=== PATIENT | male | born 1975 | race Caucasian/White ===

== ENCOUNTER 2017-01-24 07:45 | Emergency (ER) | payer OTHER ==
[2017-01-24] MEDS ORDERED: Sodium Chloride 0.9% 1000 ML 1,000 ML IV STA (08:17)
[2017-01-24] MEDS ORDERED: Hydromorphone 1 mg/ml Ampule IV ONE (08:17)
[2017-01-24] MEDS ORDERED: TORAdol 30 mg Injection IV ONE (08:17)
[2017-01-24] MEDS ORDERED: Phenergan 25 MG INJ IV ONE (08:17)
[2017-01-24] MEDS ORDERED: TORAdol 30 mg Injection ONE (08:21)
[2017-01-24] MEDS ORDERED: Hydromorphone 1 mg/ml Ampule ONE (08:21)
[2017-01-24] MEDS ORDERED: Phenergan 25 MG INJ ONE (08:21)
[2017-01-24] MEDS ORDERED: Sodium Chloride 0.9% 1000 ML 1,000 ML ONE (08:21)
[2017-01-24 08:28] LABS: Mean Cell Volume 84.8 fl (78-100); Mean Corpuscular Hemoglobin 28.8 pg (26-32); Mean Platelet Volume 11.2 fl (6-9.5); Platelet Count 216 K/mm3 (150-450); Red Blood Count 5.38 M/mm3 (4.1-5.6); Red Cell Distribution Width 13.3 % (11.5-14.0); White Blood Count 6.7 K/mm3 (4.0-10.5)
--- NOTE | 2017-01-24 08:34 | ERPHSYRPT ---
- History of Present Illness Time Seen by Provider: 01/24/17 08:28 Historian: patient Exam Limitations: no limitations Patient Subjective Stated Complaint: pt states at 0000 he began having right lower quad abdominal pain with right flank pain. states pain became worse at 0300 this morning. denies any diarrhea or vomiting. Triage Nursing Assessment: pt pale, warm, dry. abdomen soft tender to touch in right lower qaud. pt afebrile. Physician History: The patient is a 41-year-old male with his complaining of a sudden onset of right sided abdominal pain that began about 8 hours ago. It has been worsening. The pain now goes through to his back. The pain is more localized in his right lower quadrant. He is now vomiting. He has a negative past medical surgical history. He takes no prescription medicines. He has no history of kidney stones. He has an occasional alcoholic drink. Timing/Duration: hour(s) (8) Activities at Onset: none Quality: stabbing Abdominal Pain Onset Location: RLQ, flank Pain Radiation: back Severity of Pain-Max: severe Severity of Pain-Current: severe Modifying Factors: Improves With: nothing Associated Symptoms: nausea, vomiting Previous symptoms: no prior history Allergies/Adverse Reactions: No Known Drug Allergies Allergy (Unverified 01/24/17 08:01) Home Medications: No Reportable Medications [No Reported Medications] 01/24/17 [History] Hx Tetanus, Diphtheria Vaccination/Date Given: Yes ([place]) Hx Influenza Vaccination/Date Given: No Hx Pneumococcal Vaccination/Date Given: No Immunizations Up to Date: Yes - Review of Systems Constitutional: No Fever, No Chills Eyes: No Symptoms Ears, Nose, & Throat: No Symptoms Respiratory: No Cough, No Dyspnea Cardiac: No Chest Pain, No Edema, No Syncope Abdominal/Gastrointestinal: Abdominal Pain, Nausea, Vomiting, No Diarrhea Genitourinary Symptoms: No Dysuria Musculoskeletal: No Back Pain, No Neck Pain Skin: No Rash Neurological: No Dizziness, No Focal Weakness, No Sensory Changes Psychological: No Symptoms Endocrine: No Symptoms Hematologic/Lymphatic: No Symptoms Immunological/Allergic: No Symptoms All Other Systems: Reviewed and Negative - Past Medical History Pertinent Past Medical History: No - Past Surgical History Past Surgical History: No - Social History Smoking Status: Never smoker Exposure to second hand smoke: No Drug Use: none Patient Lives Alone: No - Nursing Vital Signs Nursing Vital Signs: Initial Vital Signs Temperature 97.8 F Temperature Source Oral Pulse Rate 83 Respiratory Rate 20 Blood Pressure [Right Arm] 139/95 Pain Intensity 7 - Physical Exam General Appearance: severe distress Eye Exam: PERRL/EOMI, eyes nml inspection Ears, Nose, Throat Exam: normal ENT inspection, pharynx normal, moist mucous membranes Neck Exam: normal inspection, non-tender, supple, full range of motion Respiratory Exam: normal breath sounds, lungs clear, No respiratory distress Cardiovascular Exam: regular rate/rhythm, normal heart sounds Gastrointestinal/Abdomen Exam: tenderness (RLQ) Rectal Exam: not done Back Exam: CVA tenderness (right) Extremity Exam: normal inspection, normal range of motion, pelvis stable Neurologic Exam: alert, oriented x 3, cooperative, normal mood/affect, nml cerebellar function, sensation nml, No motor deficits Skin Exam: normal color, warm, dry SpO2 Interpretation: normal SpO2: 98 Oxygen Delivery: Room Air - CT Exams Abdomen/Pelvis CT Interpretation: Tele-radiologist Report, Normal Appendix, Other (1 mm recently passed kidney stone in bladder, possible tiny gall stone) Ordered Tests: Active Orders 24 hr Category Date Time Status IV Insertion STAT Care 01/24/17 08:15 Active ABDOMEN AND PELVIS W/0 CONTRAS [CT] Stat Exams 01/24/17 09:15 Taken CBC W DIFF Stat Lab 01/24/17 05:15 Completed CMP Stat Lab 01/24/17 05:15 Completed LIPASE Stat Lab 01/24/17 05:15 Completed Manual Differential NC Stat Lab 01/24/17 05:15 Completed UA W/ MICROSCOPIC Stat Lab 01/24/17 05:15 Completed Medication Summary Discontinued Medications Generic Name Dose Route Start Last Admin Trade Name Freq PRN Reason Stop Dose Admin Hydromorphone HCl 2 mg 01/24/17 08:17 01/24/17 08:24 Hydromorphone 1 Mg/Ml Ampule IV 01/24/17 08:18 2 mg STAT ONE Administration Hydromorphone HCl Confirm 01/24/17 08:21 Hydromorphone 1 Mg/Ml Ampule Administered 01/24/17 08:22 Dose 2 mg .ROUTE .STK-MED ONE Sodium Chloride 1,000 mls @ 999 mls/hr 01/24/17 08:17 01/24/17 08:24 Sodium Chloride 0.9% 1000 Ml IV 01/24/17 09:17 999 mls/hr .Q1H1M STA Administration Sodium Chloride Confirm 01/24/17 08:21 Sodium Chloride 0.9% 1000 Ml Administered 01/24/17 08:22 Dose 1,000 mls @ ud .ROUTE .STK-MED ONE Ketorolac Tromethamine 30 mg 01/24/17 08:17 01/24/17 08:24 Toradol 30 Mg Injection IV 01/24/17 08:18 30 mg STAT ONE Administration Ketorolac Tromethamine Confirm 01/24/17 08:21 Toradol 30 Mg Injection Administered 01/24/17 08:22 Dose 30 mg .ROUTE .STK-MED ONE Promethazine HCl 25 mg 01/24/17 08:17 01/24/17 08:24 Phenergan 25 Mg Inj IV 01/24/17 08:18 25 mg STAT ONE Administration Promethazine HCl Confirm 01/24/17 08:21 Phenergan 25 Mg Inj Administered 01/24/17 08:22 Dose 25 mg .ROUTE .STK-MED ONE Tamsulosin HCl 0.4 mg 01/24/17 09:14 01/24/17 09:21 Flomax 0.4 Mg PO 01/24/17 09:15 0.4 mg HS STA Administration Tamsulosin HCl Confirm 01/24/17 09:20 Flomax 0.4 Mg Administered 01/24/17 09:21 Dose 0.4 mg .ROUTE .STK-MED ONE Lab/Rad Data: Laboratory Result Diagrams 01/24/17 05:15 01/24/17 05:15 Laboratory Results 01/24/17 01/24/17 01/24/17 Range/Units 05:15 05:15 05:15 WBC 6.7 (4.0-10.5) K/mm3 RBC 5.38 (4.1-5.6) M/mm3 Hgb 15.5 (12.5-18.0) gm/dl Hct 45.6 (42-50) % MCV 84.8 (78-100) fl MCH 28.8 (26-32) pg MCHC 34.0 (32-36) g/dl RDW 13.3 (11.5-14.0) % Plt Count 216 (150-450) K/mm3 MPV 11.2 H (6-9.5) fl Segmented Neutrophils 50 (36.-66.) % Lymphocytes (Manual) 40 (24-44) % Monocytes (Manual) 9 (0.0-12.0) % Eosinophils (Manual) 1 (0.00-3.0) % Differential Comment NORMAL Platelet Estimate NORMAL (NORMAL) Sodium 141 (136-145) mEq/L Potassium 3.8 (3.5-5.1) mEq/L Chloride 105 (98-107) mEq/L Carbon Dioxide 22.8 (21-32) mEq/L Anion Gap 16.5 H (5-15) MEQ/L BUN 10 (9-20) mg/dL Creatinine 1.37 H (0.55-1.30) mg/dl Estimated GFR > 60 ML/MIN Glucose 133 H (70-110) MG/DL Calcium 9.2 (8.5-10.1) mg/dL Total Bilirubin 1.3 H (0.2-1.0) mg/dL AST 39 H (15-37) U/L ALT 87 H (12-78) U/L Alkaline Phosphatase 77 (46-116) U/L Serum Total Protein 8.5 H (6.4-8.2) gm/dL Albumin 3.8 (3.4-5.0) g/dL Lipase 205 (73-393) U/L Ur Collection Type VOID Urine Color YELLOW (YELLOW) Urine Appearance HAZY (CLEAR) Urine pH 5.5 (5-6) Ur Specific [place] >=1.030 (1.005-1.025) Urine Protein 30 (Negative) Urine Glucose (UA) NEGATIVE (NEGATIVE) mg/dL Urine Ketones NEGATIVE (NEGATIVE) Urine Nitrite NEGATIVE (NEGATIVE) Urine Bilirubin NEGATIVE (NEGATIVE) Urine Urobilinogen 0.2 (0-1) mg/dL Urine WBC (Auto) NEGATIVE (NEGATIVE) Urine RBC (Auto) LARGE (0-5) Jitendra/ul Urine Microscopic RBC >100 (0-2) /HPF Urine Microscopic WBC 0-2 (0-5) /HPF Ur Epithelial Cells RARE (FEW) /HPF Urine Bacteria FEW (NEGATIVE) /HPF Hyaline Casts 5-10 (0-2) /LPF Urine Mucus MODERATE (NEGATIVE) /HPF Specimen Received 01/24/17 0815 - Progress Progress: improved Progress Note: 01/24/17 10:26 Pt feeling no pain at 10:25. Counseled pt/family regarding: lab results, diagnosis, need for follow-up, rad results - Departure Time of Disposition: 10:27 Departure Disposition: Home Clinical Impression: Ureterolithiasis Condition: Stable Critical Care Time: No Additional Instructions: You have passed as small 1 mm kidney stone. Continue to stay well hydrated. Follow up on Thursday with Dr Kruger to evaluate the possible tiny gallstone that was seen on abd CT scan.
[2017-01-24 08:37] VITALS: O2SAT 98
[2017-01-24 08:54] LABS: ALBUMIN 3.8 g/dL (3.4-5.0); ALKALINE PHOSPHATASE 77 U/L (46-116); ANION GAP 16.5 MEQ/L (5-15); BILIRUBIN,TOTAL 1.3 mg/dL (0.2-1.0); BLOOD UREA NITROGEN 10 mg/dL (9-20); CHLORIDE 105 mEq/L (98-107); Carbon Dioxide 22.8 mEq/L (21-32); Glucose 133 MG/DL (70-110); LIPASE 205 U/L (73-393); Potassium 3.8 mEq/L (3.5-5.1); SGOT/AST 39 U/L (15-37); SGPT/ALT 87 U/L (12-78); SODIUM 141 mEq/L (136-145); Total Protein 8.5 gm/dL (6.4-8.2)
[2017-01-24 08:58] LABS: Collection Type VOID
[2017-01-24 08:59] LABS: COMPLETE URINE MICROSCOPIC? YES; Ph 5.5 (5-6)
[2017-01-24 09:05] LABS: Bacteria FEW /HPF (NEGATIVE); Epithelial Cells RARE /HPF (FEW); Mucus MODERATE /HPF (NEGATIVE); WBC 0-2 /HPF (0-5)
[2017-01-24 09:08] LABS: Eosinophil 1 % (0.00-3.0); Platelet Estimate NORMAL (NORMAL); Total Cells Counted 100
[2017-01-24] MEDS ORDERED: Flomax 0.4 MG PO STA (09:14)
[2017-01-24] MEDS ORDERED: Flomax 0.4 MG ONE (09:20)
[2017-01-24 10:27] VITALS: PULSE 76
[2017-01-24 11:02] VITALS: BP 93/66
--- NOTE | 2017-01-26 08:52 | XRAY ---
Indication: Right flank pain. Multiple contiguous axial images obtained through the abdomen and pelvis without contrast as ordered. Comparison: None Lung bases demonstrates bibasilar dependent atelectasis and left base calcified granuloma. Heart is not enlarged. Small hiatal hernia. There is a 2-3 mm calculus in the right posterior urinary bladder. Right ureter is minimally prominent with minimal right-sided hydronephrosis consistent with recent passage of said calculus. Solitary nonobstructing left renal punctate calculus. Mild fatty liver. Tiny punctate gallbladder neck stone. Noncontrasted stomach and bowel loops appear nonobstructed. Normal air-filled appendix. Sightly enlarged prostate gland with benign appearing calcifications. Remaining liver, gallbladder, pancreas, spleen, adrenal glands, kidneys, ureters, bladder, and aorta appear unremarkable for noncontrast exam. Osseous structures intact. Impression: 1. Urinary bladder micro-calculus presumed from recent right passage. Additional nonobstructing left renal micro-calculus. 2. Incidental fatty liver, tiny gallstone, enlarged prostate gland, and small hiatal hernia. Comment: Preliminary interpretation was made by [facility]. No discrepancy. CT DI 11.41
== END 2017-01-24 11:00 | disposition home or self-care (01) ==
LOC: ED 07:45
DX: N20.1 Calculus of ureter (principal); R10.31 Right lower quadrant pain; R11.2 Nausea with vomiting, unspecified
CPT/HCPCS: 36000; 36415; 74176; 80053; 81000; 83690; 85025; 96360; 96374; 96375; 99283; 99285; J1170; J1885; J2550

== ENCOUNTER 2022-05-11 21:09 | Observation (INO) | payer BC ==
[2022-05-11] MEDS ORDERED: Sodium Chloride 0.9% 1000 ML 1,000 ML IV STA ×2 (21:29→23:16)
[2022-05-11] MEDS ORDERED: Zofran 4 MG/2 ML VIAL IV ONE (21:29)
[2022-05-11] MEDS ORDERED: TYLENOL 325 MG PO ONE (21:29)
[2022-05-11] MEDS ORDERED: MORPHINE SULFATE 2 MG INJ IV ONE (21:29)
[2022-05-11] MEDS ORDERED: Zofran 4 MG/2 ML VIAL ONE (21:43)
[2022-05-11] MEDS ORDERED: MORPHINE SULFATE 2 MG INJ ONE (21:43)
--- NOTE | 2022-05-11 21:43 | ERPHSYRPT ---
- History of Present Illness Time Seen by Provider: 05/11/22 21:11 Source: patient Exam Limitations: no limitations Patient Subjective Stated Complaint: pt states he was positive for covid and flu b two weeks ago, now ffels that he has flu like symptoms again that began last night, pt states he had a fever of 102.0. Triage Nursing Assessment: pt has no pain at this time, but has chills and fever, productive cough, no trouble with SOB. Physician History: 46 years old male presented in the ER with flulike symptoms for the last 2 weeks. Patient report he tested positive for influenza and COVID almost 10 days ago, was given Tamiflu and antibiotic, was feeling better until yesterday and his symptoms seems to be coming back with increased cough productive of clear sputum with generalized weakness fatigue tiredness. Reports nausea without vomiting. Timing/Duration: week(s) (2), gradual onset, worse Fever Severity: moderate Fever Therapy [employer] MEMBER: prescription medications Associated Symptoms: cough, headache, muscle aches, nausea/vomiting, sore throat, weakness, No shortness of breath, No syncope Allergies/Adverse Reactions: No Known Drug Allergies Allergy (Verified 05/11/22 21:29) Home Medications: No Reportable Medications [No Reported Medications] 01/24/17 [History] Hx Tetanus, Diphtheria Vaccination/Date Given: No Hx Influenza Vaccination/Date Given: No Hx Pneumococcal Vaccination/Date Given: No Immunizations Up to Date: No Travel Risk - International Travel Have you traveled outside of the country in past 3 weeks: No - Coronavirus Screening Are you exhibiting any of the following symptoms?: No Close contact with a COVID-19 positive Pt in past 14-21 Days: No - Vaccine Status Have you recieved a Covid-19 vaccination: Yes Senior Security Analyst: [employer] - Vaccination Dates Date of 2cond Vaccination (if applicable): unknown - Review of Systems Constitutional: Fever, Chills, Fatigue, Weakness Eyes: No Symptoms Ears, Nose, & Throat: Throat Pain, Throat Swelling Respiratory: Cough Cardiac: No Symptoms Abdominal/Gastrointestinal: Nausea Genitourinary Symptoms: No Symptoms Musculoskeletal: Myalgias Skin: No Symptoms Neurological: Headache Psychological: No Symptoms Endocrine: No Symptoms Hematologic/Lymphatic: No Symptoms Immunological/Allergic: No Symptoms - Past Medical History Pertinent Past Medical History: No - Past Surgical History Past Surgical History: No - Social History Smoking Status: Never smoker Exposure to second hand smoke: No Drug Use: none Patient Lives Alone: No - Nursing Vital Signs Nursing Vital Signs: Initial Vital Signs Temperature 100.2 F 05/11/22 21:18 Pulse Rate 100 H 05/11/22 21:18 Respiratory Rate 18 05/11/22 21:18 Blood Pressure 107/67 05/11/22 21:18 O2 Sat by Pulse Oximetry 96 05/11/22 21:18 Pain Scale Pain Intensity 2 - Physical Exam General Appearance: no apparent distress, alert Eye Exam: PERRL/EOMI, eyes nml inspection ENT Exam: pharyngeal erythema Neck Exam: normal inspection, supple, full range of motion Respiratory Exam: normal breath sounds, lungs clear Cardiovascular/Chest Exam: normal heart sounds, regular rate/rhythm Gastrointestinal/Abdominal Exam: soft, non tender, No no distention Extremity Exam: non-tender, normal range of motion, normal inspection Neurologic Exam: alert, oriented x 3, cooperative, engine designer II-XII nml as tested Skin Exam: normal color SpO2 Interpretation: normal SpO2: 96 O2 Delivery: Room Air Ordered Tests: Active Orders 24 hr Category Date Time Status Bedrest ROUTINE Activity 05/12/22 00:46 Active Up With Assistance ROUTINE Activity 05/12/22 00:46 Active Code Status Order ROUTINE Care 05/12/22 00:46 Active Fall Protocol Q1H Care 05/12/22 00:46 Active IV Care Q6H Care 05/12/22 00:46 Active IV Insertion STAT Care 05/11/22 21:[address] in Observation ROUTINE Care 05/12/22 00:46 Active Sidra Sanchez ROUTINE Care 05/12/22 00:46 Active CHEST 1 VIEW (PORTABLE) Stat Exams 05/11/22 21:29 Taken BLOOD CULTURE Stat Lab 05/11/22 21:29 Stop Req CBC W DIFF AM.LAB Lab 05/12/22 04:22 Results CBC W DIFF Stat Lab 05/11/22 21:45 Completed CMP AM.LAB Lab 05/12/22 04:22 Completed CMP Stat Lab 05/11/22 21:45 Completed Lactic Acid Stat Lab 05/11/22 22:00 Completed MAGNESIUM Stat Lab 05/11/22 21:45 Completed PROCALCITONIN Stat Lab 05/11/22 21:47 Completed TROPONIN Q3H Lab 05/11/22 21:45 Completed UA W/RFX CULTURE Stat Lab 05/11/22 23:43 Completed Medication Summary Generic Name Dose Route Start Last Admin Trade Name Sharee PRN Reason Stop Dose Admin Acetaminophen 650 mg 05/12/22 00:46 Acetaminophen 325 Mg Tablet PO 06/11/22 00:45 Q4H PRN PRN PAIN AND/OR FEVER Albuterol Sulfate 2.5 mg 05/12/22 02:13 Albuterol Sulfate 2.5 Mg/3 Ml Neb IH 06/11/22 02:12 Q4H PRN PRN SHORTNESS OF BREATH/WHEEZING Methylprednisolone Sodium 0 mg 05/12/22 00:46 05/12/22 05:50 Succinate 60 mg/ Sterile Water IV 06/11/22 00:45 60 mg 2 ml Q6HT JESSI Administration Potassium Chloride/Sodium Chloride 1,000 mls @ 100 mls/hr 05/12/22 00:46 05/12/22 00:56 Sodium Chloride 0.9% W/ 20 Meq Kcl/Liter IV 06/11/22 00:45 100 mls/hr .Q10H JESSI Administration Azithromycin 500 mg in 250 mls @ 250 mls/hr 05/12/22 10:00 Zithromax 500 Mg/ 250 Ml Nacl Premix IV 06/11/22 09:59 Q24H10 JESSI Ceftriaxone Sodium/Dextrose 2 g in 50 mls @ 100 mls/hr 05/12/22 10:00 Rocephin 2 Gm-D5w 50ml Bag IV 05/15/22 09:59 Q24H10 JESSI Morphine Sulfate 2 mg 05/12/22 00:46 Morphine Sulfate 2 Mg/Ml Inj IV 05/17/22 00:45 Q4H PRN PRN PAIN Ondansetron HCl 4 mg 05/12/22 00:46 Ondansetron Hcl 4 Mg/2 Ml Vial IV 06/11/22 00:45 Q6H PRN PRN NAUSEA/VOMITING Pantoprazole Sodium 40 mg 05/12/22 10:00 Pantoprazole 40 Mg Vial IV 06/11/22 09:59 Q24H10 JESSI Discontinued Medications Generic Name Dose Route Start Last Admin Trade Name Sharee PRN Reason Stop Dose Admin Acetaminophen 975 mg 05/11/22 21:29 05/11/22 21:48 Acetaminophen 325 Mg Tablet PO 05/11/22 21:30 975 mg STAT ONE Administration Acetaminophen Confirm 05/11/22 21:44 Acetaminophen 325 Mg Tablet Administered 05/11/22 21:45 Dose 975 mg .ROUTE .STK-MED ONE Albuterol/Ipratropium 3 ml 05/12/22 01:00 Ipratropium/Albuterol Sulfate 3 Ml Ampul.Neb IH 06/11/22 00:59 Q6HRT JESSI Albuterol/Ipratropium Confirm 05/12/22 01:05 Ipratropium/Albuterol Sulfate 3 Ml Ampul.Neb Administered 05/12/22 01:06 Dose 3 ml IH .STK-MED ONE Methylprednisolone Sodium 0 mg 05/11/22 22:46 05/11/22 23:25 Succinate 125 mg/ Sterile IV 05/11/22 22:47 125 mg Water 2 ml STAT ONE Administration Sodium Chloride 1,000 mls @ 999 mls/hr 05/11/22 21:29 05/11/22 22:55 Sodium Chloride 0.9% 1000 Ml IV 05/11/22 22:29 Infused .Q1H1M STA Infusion Sodium Chloride Confirm 05/11/22 21:44 Sodium Chloride 0.9% 1000 Ml Administered 05/11/22 21:45 Dose 1,000 mls @ ud .ROUTE .STK-MED ONE Ceftriaxone Sodium/Dextrose 2 g in 50 mls @ 100 mls/hr 05/11/22 22:43 05/11/22 22:48 Rocephin 2 Gm-D5w 50ml Bag IV 05/11/22 23:12 100 ml/hr STAT STA 100 mls/hr Administration Azithromycin 500 mg in 250 mls @ 250 mls/hr 05/11/22 22:43 05/11/22 23:25 Zithromax 500 Mg/ 250 Ml Nacl Premix IV 05/11/22 23:42 250 ml/hr STAT STA 250 mls/hr Administration Ceftriaxone Sodium/Dextrose Confirm 05/11/22 22:47 Rocephin 2 Gm-D5w 50ml Bag Administered 05/11/22 22:48 Dose 2 g in 50 mls @ ud IV .STK-MED ONE Sodium Chloride 1,000 mls @ 999 mls/hr 05/11/22 23:16 05/11/22 23:18 Sodium Chloride 0.9% 1000 Ml IV 05/12/22 00:16 999 mls/hr .Q1H1M STA Administration Sodium Chloride Confirm 05/11/22 23:18 Sodium Chloride 0.9% 1000 Ml Administered 05/11/22 23:19 Dose 1,000 mls @ ud .ROUTE .STK-MED ONE Azithromycin Confirm 05/11/22 23:23 Zithromax 500 Mg/ 250 Ml Nacl Premix Administered 05/11/22 23:24 Dose 500 mg in 250 mls @ ud IV .STK-MED ONE Methylprednisolone Sodium Succinate Confirm 05/11/22 23:23 Methylprednis Sod Succ 125 Mg/2 Ml Vial Administered 05/11/22 23:24 Dose 125 mg .ROUTE .STK-MED ONE Methylprednisolone Sodium Succinate Confirm 05/12/22 05:12 Methylprednis Sod Succ 125 Mg/2 Ml Vial Administered 05/12/22 05:13 Dose 125 mg .ROUTE .STK-MED ONE Morphine Sulfate 2 mg 05/11/22 21:29 05/11/22 21:46 Morphine Sulfate 2 Mg/Ml Inj IV 05/11/22 21:30 2 mg STAT ONE Administration Morphine Sulfate Confirm 05/11/22 21:43 Morphine Sulfate 2 Mg/Ml Inj Administered 05/11/22 21:44 Dose 2 mg .ROUTE .STK-MED ONE Ondansetron HCl 4 mg 05/11/22 21:29 05/11/22 21:46 Ondansetron Hcl 4 Mg/2 Ml Vial IV 05/11/22 21:30 4 mg STAT ONE Administration Ondansetron HCl Confirm 05/11/22 21:43 Ondansetron Hcl 4 Mg/2 Ml Vial Administered 05/11/22 21:44 Dose 4 mg .ROUTE .STK-MED ONE Sterile Water Confirm 05/11/22 23:23 Water For Injection,Sterile 10 Ml Vial Administered 05/11/22 23:24 Dose 10 ml IJ .STK-MED ONE Sterile Water Confirm 05/12/22 05:12 Water For Injection,Sterile 10 Ml Vial Administered 05/12/22 05:13 Dose 10 ml IJ .STK-MED ONE Lab/Rad Data: Laboratory Result Diagrams 05/11/22 21:45 05/11/22 21:45 Laboratory Results 05/11/22 05/11/22 05/11/22 Range/Units 23:43 23:01 22:00 WBC (4.0-10.5) x10^3/uL RBC (4.1-5.6) x10^6/uL Hgb (12.5-18.0) g/dL Hct (42-50) % MCV (78-100) fL MCH (26-32) pg MCHC (32-36) g/dL RDW (11.5-14.0) % Plt Count (150-450) x10^3/uL MPV (7.5-11.0) fL Gran % (36.0-66.0) % Immature Gran % (Auto) (0.00-0.4) % Nucleat RBC Rel Count (0.00-0.1) % Eos # (Auto) (0-0.5) x10^3/uL Immature Gran # (Auto) (0.00-0.03) x10^3u/L Absolute Lymphs (auto) (1.0-4.6) x10^3/uL Absolute Monos (auto) (0.0-1.3) x10^3/uL Absolute Nucleated RBC (0.00-0.01) x10^3u/L Lymphocytes % (24.0-44.0) % Monocytes % (0.0-12.0) % Eosinophils % (0.00-5.0) % Basophils % (0.0-0.4) % Absolute Granulocytes (1.4-6.9) x10^3/uL Basophils # (0-0.4) x10^3/uL Sodium (137-145) mmol/L Potassium (3.5-5.1) mmol/L Chloride (98-107) mmol/L Carbon Dioxide (22-30) mmol/L Anion Gap (5-15) MEQ/L BUN (9-20) mg/dL Creatinine (0.66-1.25) mg/dL Estimated GFR ML/MIN Glucose (74-106) mg/dL Lactic Acid 1.1 (0.4-2.0) Calcium (8.4-10.2) mg/dL Magnesium (1.6-2.3) mg/dL Total Bilirubin (0.2-1.3) mg/dL AST (17-59) U/L ALT (0-50) U/L Alkaline Phosphatase (38-126) U/L Troponin I (0.000-0.034) ng/mL Serum Total Protein (6.3-8.2) g/dL Albumin (3.5-5.0) g/dL Procalcitonin (0.030-0.080) ng/mL Urinalys Dipstick Clnc MAIN LAB Urine Color DARK YELLOW (YELLOW) Urine Appearance CLEAR (CLEAR) Urine pH 6.0 (5-6) Ur Specific [place] 1.025 (1.005-1.025) POC Urine Protein Conf 30 (Negative) Urine Ketones NEGATIVE (NEGATIVE) Urine Nitrite NEGATIVE (NEGATIVE) Urine Bilirubin NEGATIVE (NEGATIVE) Urine Urobilinogen 0.2 (0-1) mg/dL Urine Leukocytes NEGATIVE (NEGATIVE) Urine WBC (Auto) 3-5 (0-5) /HPF Urine RBC (Auto) 0-2 (0-2) /HPF U Epithel Cells (Auto) NONE (FEW) /HPF Urine Bacteria (Auto) NONE SEEN (NEGATIVE) /HPF Urine RBC NEGATIVE (0-5) Jitendra/ul Urine Mucus (Auto) SLIGHT (NEGATIVE) /HPF Ur Culture Indicated? NO Urine Glucose NEGATIVE (NEGATIVE) mg/dL Influenza Type A Ag NEGATIVE (NEGATIVE) Influenza Type B Ag NEGATIVE (NEGATIVE) RSV (PCR) NEGATIVE (Negative) SARS-CoV-2 (PCR) NEGATIVE (NEGATIVE) 05/11/22 05/11/22 05/11/22 Range/Units 21:47 21:45 21:45 WBC (4.0-10.5) x10^3/uL RBC (4.1-5.6) x10^6/uL Hgb (12.5-18.0) g/dL Hct (42-50) % MCV (78-100) fL MCH (26-32) pg MCHC (32-36) g/dL RDW (11.5-14.0) % Plt Count (150-450) x10^3/uL MPV (7.5-11.0) fL Gran % (36.0-66.0) % Immature Gran % (Auto) (0.00-0.4) % Nucleat RBC Rel Count (0.00-0.1) % Eos # (Auto) (0-0.5) x10^3/uL Immature Gran # (Auto) (0.00-0.03) x10^3u/L Absolute Lymphs (auto) (1.0-4.6) x10^3/uL Absolute Monos (auto) (0.0-1.3) x10^3/uL Absolute Nucleated RBC (0.00-0.01) x10^3u/L Lymphocytes % (24.0-44.0) % Monocytes % (0.0-12.0) % Eosinophils % (0.00-5.0) % Basophils % (0.0-0.4) % Absolute Granulocytes (1.4-6.9) x10^3/uL Basophils # (0-0.4) x10^3/uL Sodium 140 (137-145) mmol/L Potassium 3.8 (3.5-5.1) mmol/L Chloride 105 (98-107) mmol/L Carbon Dioxide 26 (22-30) mmol/L Anion Gap 13.4 (5-15) MEQ/L BUN 13 (9-20) mg/dL Creatinine 1.17 (0.66-1.25) mg/dL Estimated GFR > 60.0 ML/MIN Glucose 115 H (74-106) mg/dL Lactic Acid (0.4-2.0) Calcium 9.4 (8.4-10.2) mg/dL Magnesium 1.6 (1.6-2.3) mg/dL Total Bilirubin 0.90 (0.2-1.3) mg/dL AST 56 (17-59) U/L ALT 91 H (0-50) U/L Alkaline Phosphatase 84 (38-126) U/L Troponin I < 0.012 (0.000-0.034) ng/mL Serum Total Protein 8.6 H (6.3-8.2) g/dL Albumin 4.5 (3.5-5.0) g/dL Procalcitonin 0.306 H (0.030-0.080) ng/mL Urinalys Dipstick Clnc Urine Color (YELLOW) Urine Appearance (CLEAR) Urine pH (5-6) Ur Specific [place] (1.005-1.025) POC Urine Protein Conf (Negative) Urine Ketones (NEGATIVE) Urine Nitrite (NEGATIVE) Urine Bilirubin (NEGATIVE) Urine Urobilinogen (0-1) mg/dL Urine Leukocytes (NEGATIVE) Urine WBC (Auto) (0-5) /HPF Urine RBC (Auto) (0-2) /HPF U Epithel Cells (Auto) (FEW) /HPF Urine Bacteria (Auto) (NEGATIVE) /HPF Urine RBC (0-5) Jitendra/ul Urine Mucus (Auto) (NEGATIVE) /HPF Ur Culture Indicated? Urine Glucose (NEGATIVE) mg/dL Influenza Type A Ag (NEGATIVE) Influenza Type B Ag (NEGATIVE) RSV (PCR) (Negative) SARS-CoV-2 (PCR) (NEGATIVE) 05/11/22 Range/Units 21:45 WBC 18.8 H (4.0-10.5) x10^3/uL RBC 5.43 (4.1-5.6) x10^6/uL Hgb 15.7 (12.5-18.0) g/dL Hct 48.7 (42-50) % MCV 89.7 (78-100) fL MCH 28.9 (26-32) pg MCHC 32.2 (32-36) g/dL RDW 12.8 (11.5-14.0) % Plt Count 259 (150-450) x10^3/uL MPV 10.3 (7.5-11.0) fL Gran % 88.3 H (36.0-66.0) % Immature Gran % (Auto) 0.7 H (0.00-0.4) % Nucleat RBC Rel Count 0.0 (0.00-0.1) % Eos # (Auto) 0.02 (0-0.5) x10^3/uL Immature Gran # (Auto) 0.13 H (0.00-0.03) x10^3u/L Absolute Lymphs (auto) 1.03 (1.0-4.6) x10^3/uL Absolute Monos (auto) 0.97 (0.0-1.3) x10^3/uL Absolute Nucleated RBC 0.00 (0.00-0.01) x10^3u/L Lymphocytes % 5.5 L (24.0-44.0) % Monocytes % 5.2 (0.0-12.0) % Eosinophils % 0.1 (0.00-5.0) % Basophils % 0.2 (0.0-0.4) % Absolute Granulocytes 16.62 H (1.4-6.9) x10^3/uL Basophils # 0.04 (0-0.4) x10^3/uL Sodium (137-145) mmol/L Potassium (3.5-5.1) mmol/L Chloride (98-107) mmol/L Carbon Dioxide (22-30) mmol/L Anion Gap (5-15) MEQ/L BUN (9-20) mg/dL Creatinine (0.66-1.25) mg/dL Estimated GFR ML/MIN Glucose (74-106) mg/dL Lactic Acid (0.4-2.0) Calcium (8.4-10.2) mg/dL Magnesium (1.6-2.3) mg/dL Total Bilirubin (0.2-1.3) mg/dL AST (17-59) U/L ALT (0-50) U/L Alkaline Phosphatase (38-126) U/L Troponin I (0.000-0.034) ng/mL Serum Total Protein (6.3-8.2) g/dL Albumin (3.5-5.0) g/dL Procalcitonin (0.030-0.080) ng/mL Urinalys Dipstick Clnc Urine Color (YELLOW) Urine Appearance (CLEAR) Urine pH (5-6) Ur Specific [place] (1.005-1.025) POC Urine Protein Conf (Negative) Urine Ketones (NEGATIVE) Urine Nitrite (NEGATIVE) Urine Bilirubin (NEGATIVE) Urine Urobilinogen (0-1) mg/dL Urine Leukocytes (NEGATIVE) Urine WBC (Auto) (0-5) /HPF Urine RBC (Auto) (0-2) /HPF U Epithel Cells (Auto) (FEW) /HPF Urine Bacteria (Auto) (NEGATIVE) /HPF Urine RBC (0-5) Jitendra/ul Urine Mucus (Auto) (NEGATIVE) /HPF Ur Culture Indicated? Urine Glucose (NEGATIVE) mg/dL Influenza Type A Ag (NEGATIVE) Influenza Type B Ag (NEGATIVE) RSV (PCR) (Negative) SARS-CoV-2 (PCR) (NEGATIVE) - Progress Progress: re-examined Progress Note: 05/11/22 22:46 46 years old with positive COVID and flu almost 10 days ago is evaluated for worsening cough with generalized weakness. Patient is not in any distress, and maintaining oxygen saturation around 93% / 94% on room air. Given fluid bolus. Has a white count of 18, normal lactate and chest x-ray reviewed by me bilateral infiltrative process. Given a dose of antibiotic. Discussed with Dr. Staley and patient is being admitted. Discussed with .: Estrellita Will see patient in: hospital (observation) Counseled pt/family regarding: lab results, diagnosis, rad results - Departure Departure Disposition: Observation Clinical Impression: Sepsis Pneumonia Qualifiers: Pneumonia type: due to unspecified organism Laterality: bilateral Lung location: unspecified part of lung Qualified Code(s): J18.9 - Pneumonia, unspecified organism Condition: Stable Critical Care Time: No
[2022-05-11] MEDS ORDERED: Sodium Chloride 0.9% 1000 ML 1,000 ML ONE ×2 (21:44→23:18)
[2022-05-11] MEDS ORDERED: TYLENOL 325 MG ONE (21:44)
[2022-05-11 21:49] LABS: Absolute Neutrophil Ct (ANC) 16.62 x10^3/uL (1.4-6.9); Basophil (Absolute #) 0.04 x10^3/uL (0-0.4); Eosinophil % 0.1 % (0.00-5.0); Eosinophil (Absolute #) 0.02 x10^3/uL (0-0.5); Hematocrit 48.7 % (42-50); Hemoglobin 15.7 g/dL (12.5-18.0); Lymphocyte (Absolute #) 1.03 x10^3/uL (1.0-4.6); Lymphocytes % 5.5 % (24.0-44.0); Mean Cell Volume 89.7 fL (78-100); Mean Corpuscular Hemoglobin 28.9 pg (26-32); Mean Corpuscular Hgb Concent. 32.2 g/dL (32-36); Mean Platelet Volume 10.3 fL (7.5-11.0); Monocyte (Absolute #) 0.97 x10^3/uL (0.0-1.3); Monocytes % 5.2 % (0.0-12.0); Neutrophil % 88.3 % (36.0-66.0); Platelet Count 259 x10^3/uL (150-450); Red Blood Count 5.43 x10^6/uL (4.1-5.6); Red Cell Distribution Width 12.8 % (11.5-14.0); White Blood Count 18.8 x10^3/uL (4.0-10.5)
[2022-05-11 22:09] LABS: ALBUMIN 4.5 g/dL (3.5-5.0); ALKALINE PHOSPHATASE 84 U/L (38-126); ANION GAP 13.4 MEQ/L (5-15); BLOOD UREA NITROGEN 13 mg/dL (9-20); CHLORIDE 105 mmol/L (98-107); Calcium 9.4 mg/dL (8.4-10.2); Carbon Dioxide 26 mmol/L (22-30); Creatinine 1 1.17 mg/dL (0.66-1.25); EST GLOMERULAR FILTRATION RATE > 60.0 ML/MIN; Glucose 115 mg/dL (74-106); MAGNESIUM 1.6 mg/dL (1.6-2.3); Potassium 3.8 mmol/L (3.5-5.1); SGOT/AST 56 U/L (17-59); SGPT/ALT 91 U/L (0-50); SODIUM 140 mmol/L (137-145); Total Protein 8.6 g/dL (6.3-8.2)
[2022-05-11] MEDS ORDERED: Zithromax 500 MG/ 250 ML NaCl Premix 500 MG/250 ML IVPB IV STA (22:43)
[2022-05-11] MEDS ORDERED: ROCEPHIN 2 Gm-D5w 50ML BAG** 2 G/50 ML IVPB IV STA (22:43)
[2022-05-11] MEDS ORDERED: solu-MEDROL 125 MG, Sterile H2O 10 ml 2 ML IV ONE ×2 (22:46)
[2022-05-11] MEDS ORDERED: ROCEPHIN 2 Gm-D5w 50ML BAG** 2 G/50 ML IVPB IV ONE (22:47)
[2022-05-11] MEDS ORDERED: solu-MEDROL ONE (23:23)
[2022-05-11] MEDS ORDERED: Zithromax 500 MG/ 250 ML NaCl Premix 500 MG/250 ML IVPB IV ONE (23:23)
[2022-05-11] MEDS ORDERED: Sterile H2O 10 ml IJ ONE (23:23)
[2022-05-11 23:40] LABS: INFLUENZA A NEGATIVE (NEGATIVE); INFLUENZA B NEGATIVE (NEGATIVE); RESPIRATORY SYNCTIAL VIRUS NEGATIVE (Negative); SARS-CoV-2 Xpert Express NEGATIVE (NEGATIVE)
[2022-05-12 00:15] LABS: Appearance CLEAR (CLEAR); Bilirubin NEGATIVE (NEGATIVE); Glucose NEGATIVE (NEGATIVE); Ketones NEGATIVE (NEGATIVE); RBC NEGATIVE Ery/ul (0-5); Specific Gravity 1.025 (1.005-1.025)
[2022-05-12 00:16] LABS: Dipstick done @ ? MAIN LAB; Nitrite NEGATIVE (NEGATIVE); Protein,Urine Dip 30 (Negative); Urobilinogen 0.2 mg/dL (0-1)
[2022-05-12 00:17] LABS: Mucus SLIGHT /HPF (NEGATIVE); RBC 0-2 /HPF (0-2)
[2022-05-12 00:29] LABS: Bacteria NONE SEEN /HPF (NEGATIVE); Urine Cultured Indicated? NO
[2022-05-12] MEDS ORDERED: MORPHINE SULFATE 2 MG INJ IV PRN (00:46)
[2022-05-12] MEDS ORDERED: Zofran 4 MG/2 ML VIAL IV PRN (00:46)
[2022-05-12] MEDS ORDERED: TYLENOL 325 MG PO PRN (00:46)
[2022-05-12] MEDS: solu-MEDROL 60 MG, Sterile H2O 10 ml 2 ML IV SCH ×6 (00:50→12:18)
[2022-05-12] MEDS: Sodium Chloride 0.9% W/ 20 mEq KCl/LITER 1,000 ML IV SCH ×3 (00:56→21:12)
[2022-05-12] MEDS ORDERED: DUONEB 0.5-3 MG/3 ml Neb IH SCH (01:00)
[2022-05-12] MEDS ORDERED: DUONEB 0.5-3 MG/3 ml Neb IH ONE (01:05)
[2022-05-12] MEDS ORDERED: PROVENTIL 2.5 MG/3 ML NEB IH PRN (02:13)
[2022-05-12 05:02] LABS: Absolute Neutrophil Ct (ANC) 23.57 x10^3/uL (1.4-6.9); Basophil (Absolute #) 0.05 x10^3/uL (0-0.4); Eosinophil (Absolute #) 0 x10^3/uL (0-0.5); Hematocrit 43.7 % (42-50); Hemoglobin 14.1 g/dL (12.5-18.0); Lymphocyte (Absolute #) 1.25 x10^3/uL (1.0-4.6); Lymphocytes % 4.9 % (24.0-44.0); Mean Cell Volume 88.6 fL (78-100); Mean Corpuscular Hemoglobin 28.6 pg (26-32); Mean Corpuscular Hgb Concent. 32.3 g/dL (32-36); Mean Platelet Volume 10.8 fL (7.5-11.0); Monocyte (Absolute #) 0.48 x10^3/uL (0.0-1.3); Monocytes % 1.9 % (0.0-12.0); Neutrophil % 91.9 % (36.0-66.0); Platelet Count 250 x10^3/uL (150-450); Red Blood Count 4.93 x10^6/uL (4.1-5.6); Red Cell Distribution Width 12.9 % (11.5-14.0)
[2022-05-12] MEDS ORDERED: Sterile H2O 10 ml IJ ONE (05:12)
[2022-05-12] MEDS ORDERED: solu-MEDROL ONE (05:12)
[2022-05-12 05:29] LABS: White Blood Count 25.6 x10^3/uL (4.0-10.5)
[2022-05-12 05:43] LABS: ALBUMIN 3.9 g/dL (3.5-5.0); ALKALINE PHOSPHATASE 67 U/L (38-126); ANION GAP 14.3 MEQ/L (5-15); BLOOD UREA NITROGEN 12 mg/dL (9-20); CHLORIDE 110 mmol/L (98-107); Calcium 8.6 mg/dL (8.4-10.2); Carbon Dioxide 21 mmol/L (22-30); Creatinine 1 0.96 mg/dL (0.66-1.25); EST GLOMERULAR FILTRATION RATE > 60.0 ML/MIN; Glucose 147 mg/dL (74-106); PROCALCITONIN 0.523 ng/mL (0.030-0.080); Potassium 4.3 mmol/L (3.5-5.1); SGOT/AST 42 U/L (17-59); SGPT/ALT 70 U/L (0-50); SODIUM 141 mmol/L (137-145); Total Protein 7.7 g/dL (6.3-8.2)
--- NOTE | 2022-05-12 08:43 | XRAY ---
Indication: Cough. Chest cold. Comparison: None Portable chest demonstrates normal heart and lungs. Bony thorax intact with old left clavicle fracture.
[2022-05-12 08:48] LABS: BAND 5 % (0.0-2.0); Lymphocytes 9 % (24-44); Monocyte 1 % (0.0-12.0); Total Cells Counted 100
[2022-05-12 08:49] LABS: Platelet Estimate NORMAL (NORMAL)
--- NOTE | 2022-05-12 08:59 | PCM.HP ---
History of Present Illness - Chief Complaint Chief Complaint: Pneumonia History of Present Illness: is a 46 year old male who presented to the ER with productive cough, fever and weakness, he recently had covid about 2 weeks ago, symptoms improved and then he became ill with cough that was productive. admitted with pneumonia, improved since admission, currently on room air and afebrile. - Review of Systems Constitutional: Fever, Chills Respiratory: Cough, Short Of Breath Cardiac: No Chest Pain, No Edema, No Syncope Abdominal/Gastrointestinal: No Abdominal Pain, No Nausea, No Vomiting, No Diarrhea Genitourinary Symptoms: No Symptoms Skin: No Rash All Other Systems: Reviewed and Negative Medications & Allergies Home Medications: Home Medication List No Reportable Medications [No Reported Medications] 01/24/17 [History Confirmed 05/12/22] Allergies/Adverse Reactions: Allergies Allergy/AdvReac Type Severity Reaction Status Date / Time No Known Drug Allergies Allergy Verified 05/11/22 21:29 - Past Medical History Past Medical History: No Neurological History: No Pertinent History ENT History: No Pertinent History Cardiac History: No Pertinent History Respiratory History: No Pertinent History Endocrine Medical History: No Pertinent History Musculoskelatal History: No Pertinent History GI Medical History: No Pertinent History History: No Pertinent History Pyscho-Social History: No Pertinent History Male Reproductive Disorders: No Pertinent History - Past Surgical History Past Surgical History: No Neuro Surgical History: No Pertinent History Cardiac History: No Pertinent History Respiratory Surgery: No Pertinent History GI Surgical History: No Pertinent History Genitourinary Surgical Hx: No Pertinent History Musculskeletal Surgical Hx: No Pertinent History Male Surgical History: No Pertinent History - Social History Smoking Status: Never smoker Exposure to second hand smoke: No Alcohol: Rarely Drug Use: none - Physical Exam Vital Signs: Vital Signs - 24 hr Temp Pulse Resp BP Pulse Ox 05/12/22 08:08 74 16 96 05/12/22 07:28 97.3 F 50 L 16 93/58 98 05/12/22 06:29 96 05/12/22 04:00 97.1 F 56 L 13 93/64 92 L 05/12/22 01:29 70 18 92 L 05/12/22 01:22 98.0 F 72 19 98/58 91 L 05/12/22 01:02 98.0 F 72 19 98/58 92 L 05/12/22 00:00 83 18 92/54 92 L 05/11/22 23:43 84 18 98/66 94 L 05/11/22 22:31 91 H 18 111/78 90 L 05/11/22 21:18 100.2 F 100 H 18 107/67 96 General Appearance: no apparent distress, alert Neurologic Exam: alert, oriented x 3, cooperative, normal mood/affect, nml cerebellar function, nml station & gait, sensation nml, No motor deficits Respiratory Exam: rhonchi (left lung base) Cardiovascular Exam: regular rate/rhythm, normal heart sounds, normal peripheral pulses Gastrointestinal/Abdomen Exam: soft, normal bowel sounds, No tenderness, No mass Extremity Exam: normal inspection, normal range of motion, pelvis stable Skin Exam: normal color, warm, dry, No rash Results - Labs Lab/Micro Results: Lab Results-Last 24 Hours 05/11/22 05/11/22 05/11/22 Range/Units 21:45 21:45 21:45 WBC 18.8 H (4.0-10.5) x10^3/uL RBC 5.43 (4.1-5.6) x10^6/uL Hgb 15.7 (12.5-18.0) g/dL Hct 48.7 (42-50) % MCV 89.7 (78-100) fL MCH 28.9 (26-32) pg MCHC 32.2 (32-36) g/dL RDW 12.8 (11.5-14.0) % Plt Count 259 (150-450) x10^3/uL MPV 10.3 (7.5-11.0) fL Gran % 88.3 H (36.0-66.0) % Immature Gran % (Auto) 0.7 H (0.00-0.4) % Nucleat RBC Rel Count 0.0 (0.00-0.1) % Eos # (Auto) 0.02 (0-0.5) x10^3/uL Immature Gran # (Auto) 0.13 H (0.00-0.03) x10^3u/L Absolute Lymphs (auto) 1.03 (1.0-4.6) x10^3/uL Absolute Monos (auto) 0.97 (0.0-1.3) x10^3/uL Absolute Nucleated RBC 0.00 (0.00-0.01) x10^3u/L Lymphocytes % 5.5 L (24.0-44.0) % Monocytes % 5.2 (0.0-12.0) % Eosinophils % 0.1 (0.00-5.0) % Basophils % 0.2 (0.0-0.4) % Absolute Granulocytes 16.62 H (1.4-6.9) x10^3/uL Segmented Neutrophils (36.-66.) % Band Neutrophils (0.0-2.0) % Lymphocytes (Manual) (24-44) % Monocytes (Manual) (0.0-12.0) % Basophils # 0.04 (0-0.4) x10^3/uL Platelet Estimate (NORMAL) RBC Morphology Smear Path Review Sodium 140 (137-145) mmol/L Potassium 3.8 (3.5-5.1) mmol/L Chloride 105 (98-107) mmol/L Carbon Dioxide 26 (22-30) mmol/L Anion Gap 13.4 (5-15) MEQ/L BUN 13 (9-20) mg/dL Creatinine 1.17 (0.66-1.25) mg/dL Estimated GFR > 60.0 ML/MIN Glucose 115 H (74-106) mg/dL Lactic Acid (0.4-2.0) Calcium 9.4 (8.4-10.2) mg/dL Magnesium 1.6 (1.6-2.3) mg/dL Total Bilirubin 0.90 (0.2-1.3) mg/dL AST 56 (17-59) U/L ALT 91 H (0-50) U/L Alkaline Phosphatase 84 (38-126) U/L Troponin I < 0.012 (0.000-0.034) ng/mL Serum Total Protein 8.6 H (6.3-8.2) g/dL Albumin 4.5 (3.5-5.0) g/dL Procalcitonin (0.030-0.080) ng/mL Urinalys Dipstick Clnc Urine Color (YELLOW) Urine Appearance (CLEAR) Urine pH (5-6) Ur Specific [place] (1.005-1.025) POC Urine Protein Conf (Negative) Urine Ketones (NEGATIVE) Urine Nitrite (NEGATIVE) Urine Bilirubin (NEGATIVE) Urine Urobilinogen (0-1) mg/dL Urine Leukocytes (NEGATIVE) Urine WBC (Auto) (0-5) /HPF Urine RBC (Auto) (0-2) /HPF U Epithel Cells (Auto) (FEW) /HPF Urine Bacteria (Auto) (NEGATIVE) /HPF Urine RBC (0-5) Jitendra/ul Urine Mucus (Auto) (NEGATIVE) /HPF Ur Culture Indicated? Urine Glucose (NEGATIVE) mg/dL Influenza Type A Ag (NEGATIVE) Influenza Type B Ag (NEGATIVE) RSV (PCR) (Negative) SARS-CoV-2 (PCR) (NEGATIVE) 05/11/22 05/11/22 05/11/22 Range/Units 21:47 22:00 23:01 WBC (4.0-10.5) x10^3/uL RBC (4.1-5.6) x10^6/uL Hgb (12.5-18.0) g/dL Hct (42-50) % MCV (78-100) fL MCH (26-32) pg MCHC (32-36) g/dL RDW (11.5-14.0) % Plt Count (150-450) x10^3/uL MPV (7.5-11.0) fL Gran % (36.0-66.0) % Immature Gran % (Auto) (0.00-0.4) % Nucleat RBC Rel Count (0.00-0.1) % Eos # (Auto) (0-0.5) x10^3/uL Immature Gran # (Auto) (0.00-0.03) x10^3u/L Absolute Lymphs (auto) (1.0-4.6) x10^3/uL Absolute Monos (auto) (0.0-1.3) x10^3/uL Absolute Nucleated RBC (0.00-0.01) x10^3u/L Lymphocytes % (24.0-44.0) % Monocytes % (0.0-12.0) % Eosinophils % (0.00-5.0) % Basophils % (0.0-0.4) % Absolute Granulocytes (1.4-6.9) x10^3/uL Segmented Neutrophils (36.-66.) % Band Neutrophils (0.0-2.0) % Lymphocytes (Manual) (24-44) % Monocytes (Manual) (0.0-12.0) % Basophils # (0-0.4) x10^3/uL Platelet Estimate (NORMAL) RBC Morphology Smear Path Review Sodium (137-145) mmol/L Potassium (3.5-5.1) mmol/L Chloride (98-107) mmol/L Carbon Dioxide (22-30) mmol/L Anion Gap (5-15) MEQ/L BUN (9-20) mg/dL Creatinine (0.66-1.25) mg/dL Estimated GFR ML/MIN Glucose (74-106) mg/dL Lactic Acid 1.1 (0.4-2.0) Calcium (8.4-10.2) mg/dL Magnesium (1.6-2.3) mg/dL Total Bilirubin (0.2-1.3) mg/dL AST (17-59) U/L ALT (0-50) U/L Alkaline Phosphatase (38-126) U/L Troponin I (0.000-0.034) ng/mL Serum Total Protein (6.3-8.2) g/dL Albumin (3.5-5.0) g/dL Procalcitonin 0.306 H (0.030-0.080) ng/mL Urinalys Dipstick Clnc Urine Color (YELLOW) Urine Appearance (CLEAR) Urine pH (5-6) Ur Specific [place] (1.005-1.025) POC Urine Protein Conf (Negative) Urine Ketones (NEGATIVE) Urine Nitrite (NEGATIVE) Urine Bilirubin (NEGATIVE) Urine Urobilinogen (0-1) mg/dL Urine Leukocytes (NEGATIVE) Urine WBC (Auto) (0-5) /HPF Urine RBC (Auto) (0-2) /HPF U Epithel Cells (Auto) (FEW) /HPF Urine Bacteria (Auto) (NEGATIVE) /HPF Urine RBC (0-5) Jitendra/ul Urine Mucus (Auto) (NEGATIVE) /HPF Ur Culture Indicated? Urine Glucose (NEGATIVE) mg/dL Influenza Type A Ag NEGATIVE (NEGATIVE) Influenza Type B Ag NEGATIVE (NEGATIVE) RSV (PCR) NEGATIVE (Negative) SARS-CoV-2 (PCR) NEGATIVE (NEGATIVE) 05/11/22 05/12/22 05/12/22 Range/Units 23:43 04:22 04:22 WBC 25.6 H* (4.0-10.5) x10^3/uL RBC 4.93 (4.1-5.6) x10^6/uL Hgb 14.1 (12.5-18.0) g/dL Hct 43.7 (42-50) % MCV 88.6 (78-100) fL MCH 28.6 (26-32) pg MCHC 32.3 (32-36) g/dL RDW 12.9 (11.5-14.0) % Plt Count 250 (150-450) x10^3/uL MPV 10.8 (7.5-11.0) fL Gran % 91.9 H (36.0-66.0) % Immature Gran % (Auto) 1.1 H (0.00-0.4) % Nucleat RBC Rel Count 0.0 (0.00-0.1) % Eos # (Auto) 0 (0-0.5) x10^3/uL Immature Gran # (Auto) 0.27 H (0.00-0.03) x10^3u/L Absolute Lymphs (auto) 1.25 (1.0-4.6) x10^3/uL Absolute Monos (auto) 0.48 (0.0-1.3) x10^3/uL Absolute Nucleated RBC 0.00 (0.00-0.01) x10^3u/L Lymphocytes % 4.9 L (24.0-44.0) % Monocytes % 1.9 (0.0-12.0) % Eosinophils % 0.0 (0.00-5.0) % Basophils % 0.2 (0.0-0.4) % Absolute Granulocytes 23.57 H (1.4-6.9) x10^3/uL Segmented Neutrophils 85 H (36.-66.) % Band Neutrophils 5 H (0.0-2.0) % Lymphocytes (Manual) 9 L (24-44) % Monocytes (Manual) 1 (0.0-12.0) % Basophils # 0.05 (0-0.4) x10^3/uL Platelet Estimate NORMAL (NORMAL) RBC Morphology NORMAL Smear Path Review Pending Sodium 141 (137-145) mmol/L Potassium 4.3 (3.5-5.1) mmol/L Chloride 110 H (98-107) mmol/L Carbon Dioxide 21 L (22-30) mmol/L Anion Gap 14.3 (5-15) MEQ/L BUN 12 (9-20) mg/dL Creatinine 0.96 (0.66-1.25) mg/dL Estimated GFR > 60.0 ML/MIN Glucose 147 H (74-106) mg/dL Lactic Acid (0.4-2.0) Calcium 8.6 (8.4-10.2) mg/dL Magnesium (1.6-2.3) mg/dL Total Bilirubin 0.70 (0.2-1.3) mg/dL AST 42 (17-59) U/L ALT 70 H (0-50) U/L Alkaline Phosphatase 67 (38-126) U/L Troponin I (0.000-0.034) ng/mL Serum Total Protein 7.7 (6.3-8.2) g/dL Albumin 3.9 (3.5-5.0) g/dL Procalcitonin 0.523 H (0.030-0.080) ng/mL Urinalys Dipstick Clnc MAIN LAB Urine Color DARK YELLOW (YELLOW) Urine Appearance CLEAR (CLEAR) Urine pH 6.0 (5-6) Ur Specific [place] 1.025 (1.005-1.025) POC Urine Protein Conf 30 (Negative) Urine Ketones NEGATIVE (NEGATIVE) Urine Nitrite NEGATIVE (NEGATIVE) Urine Bilirubin NEGATIVE (NEGATIVE) Urine Urobilinogen 0.2 (0-1) mg/dL Urine Leukocytes NEGATIVE (NEGATIVE) Urine WBC (Auto) 3-5 (0-5) /HPF Urine RBC (Auto) 0-2 (0-2) /HPF U Epithel Cells (Auto) NONE (FEW) /HPF Urine Bacteria (Auto) NONE SEEN (NEGATIVE) /HPF Urine RBC NEGATIVE (0-5) Jitendra/ul Urine Mucus (Auto) SLIGHT (NEGATIVE) /HPF Ur Culture Indicated? NO Urine Glucose NEGATIVE (NEGATIVE) mg/dL Influenza Type A Ag (NEGATIVE) Influenza Type B Ag (NEGATIVE) RSV (PCR) (Negative) SARS-CoV-2 (PCR) (NEGATIVE) - Radiology Impressions Radiology Exams & Impressions: Radiology Procedures Category Date Time Status CHEST 1 VIEW (PORTABLE) Stat Exams 05/11/22 21:29 Completed - Other Procedures and Tests Respiratory Therapy 05/12/22 01:05 Respiratory Therapy Assessment DAILY Assessment/Plan (1) Pneumonia Current Visit: Yes Status: Acute Qualifiers: Pneumonia type: due to unspecified organism Laterality: bilateral Lung location: unspecified part of lung Qualified Code(s): J18.9 - Pneumonia, unspecified organism Assessment & Plan: exam and history suggestive of secondary bacterial pneumonia following sars-cov 2 infection. patient will continue on rocephin/zithromax. d/c steroids, no wheezing heard. Code(s): J18.9 - PNEUMONIA, UNSPECIFIED ORGANISM
[2022-05-12] MEDS: PROTONIX 40 MG IV IV SCH (11:01)
[2022-05-12] MEDS: ROCEPHIN 2 Gm-D5w 50ML BAG** 2 G/50 ML IVPB IV SCH (21:12)
[2022-05-12] MEDS: Zithromax 500 MG/ 250 ML NaCl Premix 500 MG/250 ML IVPB IV SCH (22:09)
[2022-05-13 04:46] LABS: Hematocrit 40.6 % (42-50); Hemoglobin 13.4 g/dL (12.5-18.0); Mean Cell Volume 88.1 fL (78-100); Mean Corpuscular Hemoglobin 29.1 pg (26-32); Mean Platelet Volume 11.1 fL (7.5-11.0); Platelet Count 256 x10^3/uL (150-450); Red Blood Count 4.61 x10^6/uL (4.1-5.6); Red Cell Distribution Width 13.4 % (11.5-14.0)
[2022-05-13 04:58] LABS: ANION GAP 10.8 MEQ/L (5-15); BLOOD UREA NITROGEN 13 mg/dL (9-20); CHLORIDE 114 mmol/L (98-107); Calcium 8.6 mg/dL (8.4-10.2); Carbon Dioxide 21 mmol/L (22-30); Creatinine 1 0.83 mg/dL (0.66-1.25); EST GLOMERULAR FILTRATION RATE > 60.0 ML/MIN; Glucose 114 mg/dL (74-106); Potassium 4.3 mmol/L (3.5-5.1); SODIUM 142 mmol/L (137-145)
[2022-05-13 05:17] LABS: White Blood Count 28.4 x10^3/uL (4.0-10.5)
[2022-05-13 06:11] LABS: Lymphocytes 3 % (24-44); Platelet Estimate NORMAL (NORMAL); Total Cells Counted 100
[2022-05-13] MEDS: Sodium Chloride 0.9% W/ 20 mEq KCl/LITER 1,000 ML IV SCH (08:45)
--- NOTE | 2022-05-13 08:47 | PCM.DS ---
Discharge Summary Date of Admission: 05/12/22 00:42 Admitting Physician: PRAKASH MARTINEZ Primary Care Provider: KANA ESCOBEDO Allergies Allergies No Known Drug Allergies Allergy (Verified 05/11/22 21:29) Hospital Summary - Hospital Course Hospital Course: Pt is a 46 yo male pt of Dr. Escobedo who was admitted with PNA. Had covid about 2 weeks ago then started having productive cough. He has been afebrile and on room air since admission. He is feeling much better today and would like to go home. He is on day #3 rocephin and zithromax. Tolerating po. Will go ahead with today's dose of antibiotics, then discharge pt to home. The only issue he continues to have is elevated WBC - up to 28,000 today. This could be related to his recent steroid doses here, which were stopped yesterday. Of course I worry about systemic infection, but clinically he is doing very well, remains afebrile and oxygenating well, and his exam is completely benign. Since he is not on O2 and is only getting antibiotics once daily, will discharge to home this evening, have him recheck CBC in the morning and f/u with DR. Escobedo in the office tomorrow. Pt is aware. - Vitals & Intake/Output Vital Signs: Vital Signs Temperature 97.8 F 05/13/22 07:07 Pulse Rate 55 L 05/13/22 07:07 Respiratory Rate 24 05/13/22 07:07 Blood Pressure 127/86 05/13/22 07:07 O2 Sat by Pulse Oximetry 98 05/13/22 07:07 Intake & Output: Intake & Output 05/10/22 05/11/22 05/12/22 05/13/22 11:59 11:59 11:59 11:59 Intake Total 886 3146 Output Total 1025 1025 Balance -139 2121 Weight 70.2 kg - Lab Result Diagrams: 05/13/22 04:45 05/13/22 04:45 Lab Results-Last 24 Hrs: Lab Results-Last 24 Hours 05/12/22 05/13/22 05/13/22 Range/Units 04:22 04:45 04:45 WBC 28.4 H* (4.0-10.5) x10^3/uL RBC 4.61 (4.1-5.6) x10^6/uL Hgb 13.4 (12.5-18.0) g/dL Hct 40.6 L (42-50) % MCV 88.1 (78-100) fL MCH 29.1 (26-32) pg MCHC 33.0 (32-36) g/dL RDW 13.4 (11.5-14.0) % Plt Count 256 (150-450) x10^3/uL MPV 11.1 H (7.5-11.0) fL Segmented Neutrophils 85 H 97 H (36.-66.) % Band Neutrophils 5 H (0.0-2.0) % Lymphocytes (Manual) 9 L 3 L (24-44) % Monocytes (Manual) 1 (0.0-12.0) % Platelet Estimate NORMAL NORMAL (NORMAL) RBC Morphology NORMAL NORMAL Sodium 142 (137-145) mmol/L Potassium 4.3 (3.5-5.1) mmol/L Chloride 114 H (98-107) mmol/L Carbon Dioxide 21 L (22-30) mmol/L Anion Gap 10.8 (5-15) MEQ/L BUN 13 (9-20) mg/dL Creatinine 0.83 (0.66-1.25) mg/dL Estimated GFR > 60.0 ML/MIN Glucose 114 H (74-106) mg/dL Calcium 8.6 (8.4-10.2) mg/dL Micro Results-Entire Visit: Microbiology 05/11/22 21:29 Blood Culture - Preliminary Blood NO GROWTH TO DATE 05/11/22 21:45 Blood Culture - Preliminary Blood NO GROWTH TO DATE - Radiology Exams Ordered Rad Exams-Entire Visit: Radiology Procedures Category Date Time Status CHEST 1 VIEW (PORTABLE) Stat Exams 05/11/22 21:29 Completed - Procedures and Test Procedures and Tests throughout Hospitalization: Therapy Orders & Screens 05/12/22 01:05 Respiratory Therapy Assessment DAILY Comment: Diagnosis: Pneumonia Discharge Exam General Appearance: no apparent distress, alert Neurologic Exam: oriented x 3, cooperative Eye Exam: eyes nml inspection Ears, Nose, Throat Exam: moist mucous membranes Neck Exam: normal inspection, non-tender, No lymphadenopathy, No thyromegaly Respiratory Exam: normal breath sounds, lungs clear, No crackles/rales, No rhonchi, No wheezing Cardiovascular Exam: regular rate/rhythm, normal heart sounds, No murmur Extremity Exam: normal inspection, No pedal edema, No swelling Skin Exam: normal color, warm, dry, No rash Final Diagnosis/Problem List - Final Discharge Diagnosis/Problem (1) Pneumonia Current Visit: Yes Status: Acute Assessment & Plan: Much improved. Home after rocephin and zithromax tonight; will send home on augmentin. F/u with Dr. Escobedo tomorrow. Will check lactic acid this morning. Code(s): J18.9 - PNEUMONIA, UNSPECIFIED ORGANISM (2) Leukocytosis Current Visit: Yes Status: Acute Assessment & Plan: recheck in a.m. Code(s): D72.829 - ELEVATED WHITE BLOOD CELL COUNT, UNSPECIFIED - Discharge Disposition: Home, Self-Care Condition: Good Prescriptions: New Lactobacillus Acidophilus [Acidophilus TABLET] 1 tab PO TID #30 tablet Amox Tr/Potass Clav. 875 mg [Augmentin 875-125 Tablet] 875 mg PO BID #14 tablet Albuterol 2.5 mg/3 ml Neb [Proventil 2.5 mg/3 ml Neb] 2.5 mg IH Q4H PRN PRN #30 unit PRN Reason: Shortness Of Breath/Wheezing Follow up with: KANA ESCOBEDO MD [Primary Care Provider] - 05/14/22 9:45 am
[2022-05-13] MEDS: PROTONIX 40 MG IV IV SCH (10:30)
[2022-05-13] MEDS: ROCEPHIN 2 Gm-D5w 50ML BAG** 2 G/50 ML IVPB IV SCH (16:45)
[2022-05-13 17:03] VITALS: BP 148/92; PULSE 51; O2SAT 98
[2022-05-13] MEDS: Zithromax 500 MG/ 250 ML NaCl Premix 500 MG/250 ML IVPB IV SCH (18:10)
== END 2022-05-13 19:47 | disposition home or self-care (01) ==
LOC: ED 21:09 → MED SURG 05-12 00:42
PROVIDERS: ADMIT Family Medicine; ATTEND Family Medicine
DX: J18.9 Pneumonia, unspecified organism (principal); D72.829 Elevated white blood cell count, unspecified; Z20.828 Contact with and (suspected) exposure to other viral communicable diseases
CPT/HCPCS: 0241U; 36000; 36415; 71045; 80048; 80053; 81015; 83605; 83735; 84145; 84484; 85025; 87040; 94760; 96360; 96365; 96367; 96374; 96375; 99285; 93268; J0456; J0696; J2270; J2405; J2930; A9270-GY; G0378

== ENCOUNTER 2025-01-31 16:52 | Observation (INO) | payer OTHER ==
--- NOTE | 2025-01-31 17:05 | ERPHSYRPT ---
- History of Present Illness Source: patient, family Exam Limitations: no limitations Patient Subjective Stated Complaint: PT states "I had a chest x ray on thursday and I was told I have pneumonia and I am not getting any better. My joints ache and I am still coughing and short of breath." Triage Nursing Assessment: Pt presented alert and oriented X 3, skin pwd. Pt ambulates with an upright steady gait, able to speak in clear full sentences. pt resting comfortably on the bed. Timing/Duration: day(s) (3), worse Severity of Dyspnea-Max: moderate Severity of Dyspnea-Current: moderate Possible Cause: no prior episodes Modifying Factors: Improves With: coughing Associated Symptoms: cough, No chest pain/discomfort, No wheezing Hx Tetanus, Diphtheria Vaccination/Date Given: No Hx Influenza Vaccination/Date Given: No Hx Pneumococcal Vaccination/Date Given: No Immunizations Up to Date: No <ANUJA PATEL - Last Filed: 01/31/25 20:02> <GEENA PEREZ - Last Filed: 01/31/25 22:39> - History of Present Illness Time Seen by Provider: 01/31/25 17:04 Physician History: This is a 49-year-old white male patient who presents to the emergency department with a diagnosis of pneumonia that was found on chest x-ray 3 days ago in outpatient/urgent care center. Patient was given a single intramuscular injection of steroids and placed on doxycycline. Patient is also been using albuterol nebulizer treatments. Despite the above therapy, the patient states his cough is worse as is his shortness of breath. Patient's oxygen saturation levels 88% on room air and was placed on 2 L of oxygen. His oxygen saturation level improved to 93%. Patient denies chest pain without coughing but has some muscular chest pain with coughing. He has no abdominal pain. He said no nausea vomiting or diarrhea symptoms. (ANUJA PATEL) Allergies/Adverse Reactions: No Known Drug Allergies Allergy (Verified 05/11/22 21:29) Home Medications: Doxycycline Hyclate 100 mg [Vibramycin 100 MG] 100 mg PO BID 01/31/25 [History] Travel Risk - International Travel Have you traveled outside of the country in past 3 weeks: No - Emerging Infectious Disease Are you exhibiting symptoms associated with any current EIDs: Yes Symptoms: Fever, Headaches/Body Aches/, Joint Pain <ANUJA PATEL - Last Filed: 01/31/25 20:02> - Review of Systems Constitutional: No Symptoms Eyes: No Symptoms Ears, Nose, & Throat: No Symptoms Respiratory: Cough, Dyspnea Cardiac: No Symptoms Abdominal/Gastrointestinal: No Symptoms Genitourinary Symptoms: No Symptoms Musculoskeletal: Arthralgias, Myalgias Skin: No Symptoms Neurological: No Symptoms Psychological: No Symptoms Endocrine: No Symptoms Hematologic/Lymphatic: No Symptoms Immunological/Allergic: No Symptoms All Other Systems: Reviewed and Negative <ANUJA PATEL - Last Filed: 01/31/25 20:02> - Past Medical History Pertinent Past Medical History: No Neurological History: No Pertinent History ENT History: No Pertinent History Cardiac History: No Pertinent History Respiratory History: No Pertinent History Endocrine Medical History: No Pertinent History Musculoskeletal History: No Pertinent History GI Medical History: No Pertinent History History: No Pertinent History Psycho-Social History: No Pertinent History Male Reproductive Disorders: No Pertinent History - Past Surgical History Past Surgical History: No Neuro Surgical History: No Pertinent History Cardiac: No Pertinent History Respiratory: No Pertinent History Gastrointestinal: No Pertinent History Genitourinary: No Pertinent History Musculoskeletal: No Pertinent History Male Surgical History: No Pertinent History - Social History Smoking Status: Never smoker Exposure to second hand smoke: No Drug Use: none - Social Determinants of Health Will the patient participate in the screening: Yes Do you worry about a steady place to live?: No Do you have any problems with any of the following?: No known problems In the past 12 months,have you had to go without utilities?: No Transportation Issues: No Has anyone in your support network made you feel unsafe?: No Have you or anyone in your house had to go w/o enough food: No <ANUJA PATEL - Last Filed: 01/31/25 20:02> - Physical Exam General Appearance: mild distress, alert, anxiety Eye Exam: PERRL/EOMI, eyes nml inspection Ears, Nose, Throat Exam: hearing grossly normal, normal ENT inspection, normal pharynx Neck Exam: normal inspection, non-tender, supple, full range of motion Respiratory Exam: normal breath sounds, lungs clear, airway intact, No chest tenderness, No respiratory distress Cardiovascular/Chest Exam: normal heart sounds, regular rate/rhythm Abdominal/Gastrointestinal Exam: soft, normal bowel sounds, No tenderness Rectal Exam: not done Extremity Exam: non-tender, normal range of motion, normal inspection, no calf tenderness, no pedal edema, pelvis stable Neurologic Exam: alert, oriented x 3, cooperative, hat lining blocker II-XII nml as tested, normal mood/affect, nml cerebellar function, nml station & gait, sensation nml Skin Exam: normal color, warm, dry Lymphatic Exam: No adenopathy SpO2 Interpretation: borderline oxygenation SpO2: 94 O2 Delivery: Nasal Cannula <ANUJA PATEL - Last Filed: 01/31/25 20:02> - Nursing Vital Signs Nursing Vital Signs: Initial Vital Signs Temperature 98.4 F 01/31/25 16:53 Pulse Rate 70 01/31/25 16:53 Respiratory Rate 22 01/31/25 16:53 Blood Pressure 119/71 01/31/25 16:53 O2 Sat by Pulse Oximetry 95 01/31/25 16:53 Pain Scale Pain Intensity 5 - Course Nursing assessment & vital signs reviewed: Yes <ANUJA PATEL - Last Filed: 01/31/25 20:02> - CT Exams Chest CT Interpretation: Tele-radiologist Report (CTA chest negative for PE. Small hiatal hernia and fatty liver otherwise normal) <GEENA PEREZ - Last Filed: 01/31/25 22:39> Ordered Tests: Active Orders 24 hr Category Date Time Status Retail Service Technician STAT Care 01/31/25 17:30 Active EKG-ER Only STAT Care 01/31/25 17:24 Active IV Insertion STAT Care 01/31/25 17:24 Active CHEST 1 VIEW (PORTABLE) Stat Exams 01/31/25 19:38 Taken CHEST WITH CONTRAST [CT] Stat Exams 01/31/25 20:15 Taken BLOOD CULTURE Stat Lab 01/31/25 18:00 Received CBC W DIFF Stat Lab 01/31/25 17:24 Completed CMP Stat Lab 01/31/25 18:32 Completed D-DIMER QUANTITATIVE Stat Lab 01/31/25 18:32 Completed Lactic Acid Stat Lab 01/31/25 17:30 Completed Transfer Order Routine Transfer 01/31/25 Ordered Medication Summary Discontinued Medications Generic Name Dose Route Start Last Admin Trade Name Freq PRN Reason Stop Dose Admin Hydrocodone Bitart/Acetaminophen 10 ml 01/31/25 18:21 01/31/25 18:27 Hydrocodone/Acetaminophen 5 Ml Udcup PO 01/31/25 18:22 10 ml STAT STA Administration Hydrocodone Bitart/Acetaminophen Confirm 01/31/25 18:25 Hydrocodone/Acetaminophen 5 Ml Udcup Administered 01/31/25 18:26 Dose 10 ml .ROUTE .STK-MED ONE Sodium Chloride 1,000 mls @ 999 mls/hr 01/31/25 19:36 01/31/25 21:22 Sodium Chloride 0.9% 1000 Ml IV 01/31/25 20:36 Infused .Q1H1M STA Infusion Sodium Chloride Confirm 01/31/25 19:38 Sodium Chloride 0.9% 1000 Ml Administered 01/31/25 19:39 Dose 1,000 mls @ ud .ROUTE .STK-MED ONE Lab/Rad Data: Laboratory Result Diagrams 01/31/25 17:24 01/31/25 18:32 Laboratory Results 01/31/25 01/31/25 01/31/25 Range/Units 18:32 18:32 18:00 WBC (4.23-9.07) x10^3/uL RBC (4.63-6.08) x10^6/uL Hgb (13.7-17.5) g/dL Hct (40.1-51.0) % MCV (79.0-92.2) fL MCH (25.7-32.2) pg MCHC (32.3-36.5) g/dL RDW (11.6-14.4) % Plt Count (163-337) x10^3/uL MPV (9.4-12.4) fL Gran % (34.0-67.9) % Immature Gran % (Auto) (0.001-0.429) % Nucleat RBC Rel Count (0.00-0.2) % Eos # (Auto) (0.04-0.54) x10^3/uL Immature Gran # (Auto) (0.001-0.031) x10^3u/L Absolute Lymphs (auto) (1.32-3.57) x10^3/uL Absolute Monos (auto) (0.30-0.82) x10^3/uL Absolute Nucleated RBC (0.00-0.012) x10^3u/L Lymphocytes % (21.8-53.1) % Monocytes % (5.3-12.2) % Eosinophils % (0.8-7.0) % Basophils % (0.2-1.2) % Absolute Granulocytes (1.78-5.38) x10^3/uL Basophils # (0.01-0.08) x10^3/uL D-Dimer 0.51 H (0.0-0.50) mg/L Sodium 142 (135-145) mmol/L Potassium 3.5 (3.5-5.1) mmol/L Chloride 109 H (98-107) mmol/L Carbon Dioxide 20 L (22-30) mmol/L Anion Gap 16.4 H (5-15) MEQ/L BUN 21 H (9-20) mg/dL Creatinine 0.91 (0.66-1.25) mg/dL Estimated GFR 102.0 ML/MIN Glucose 83 (74-106) mg/dL Lactic Acid (0.4-2.0) Calcium 8.9 (8.4-10.2) mg/dL Total Bilirubin 0.60 (0.2-1.3) mg/dL AST 62 H (17-59) U/L ALT 101 H (0-50) U/L Alkaline Phosphatase 70 (38-126) U/L Serum Total Protein 7.0 (6.3-8.2) g/dL Albumin 3.9 (3.5-5.0) g/dL Influenza Type A Ag POSITIVE A (NEGATIVE) Influenza Type B Ag NEGATIVE (NEGATIVE) RSV (PCR) NEGATIVE (NEGATIVE) SARS-CoV-2 (PCR) NEGATIVE (NEGATIVE) 01/31/25 01/31/25 Range/Units 17:30 17:24 WBC 4.7 (4.23-9.07) x10^3/uL RBC 5.14 (4.63-6.08) x10^6/uL Hgb 14.9 (13.7-17.5) g/dL Hct 45.5 (40.1-51.0) % MCV 88.5 (79.0-92.2) fL MCH 29.0 (25.7-32.2) pg MCHC 32.7 (32.3-36.5) g/dL RDW 13.4 (11.6-14.4) % Plt Count 143 L (163-337) x10^3/uL MPV 11.3 (9.4-12.4) fL Gran % 65.4 (34.0-67.9) % Immature Gran % (Auto) 0.4 (0.001-0.429) % Nucleat RBC Rel Count 0.0 (0.00-0.2) % Eos # (Auto) 0 L (0.04-0.54) x10^3/uL Immature Gran # (Auto) 0.02 (0.001-0.031) x10^3u/L Absolute Lymphs (auto) 1.02 L (1.32-3.57) x10^3/uL Absolute Monos (auto) 0.56 (0.30-0.82) x10^3/uL Absolute Nucleated RBC 0.00 (0.00-0.012) x10^3u/L Lymphocytes % 21.8 (21.8-53.1) % Monocytes % 12.0 (5.3-12.2) % Eosinophils % 0.0 L (0.8-7.0) % Basophils % 0.4 (0.2-1.2) % Absolute Granulocytes 3.05 (1.78-5.38) x10^3/uL Basophils # 0.02 (0.01-0.08) x10^3/uL D-Dimer (0.0-0.50) mg/L Sodium (135-145) mmol/L Potassium (3.5-5.1) mmol/L Chloride (98-107) mmol/L Carbon Dioxide (22-30) mmol/L Anion Gap (5-15) MEQ/L BUN (9-20) mg/dL Creatinine (0.66-1.25) mg/dL Estimated GFR ML/MIN Glucose (74-106) mg/dL Lactic Acid 0.8 (0.4-2.0) Calcium (8.4-10.2) mg/dL Total Bilirubin (0.2-1.3) mg/dL AST (17-59) U/L ALT (0-50) U/L Alkaline Phosphatase (38-126) U/L Serum Total Protein (6.3-8.2) g/dL Albumin (3.5-5.0) g/dL Influenza Type A Ag (NEGATIVE) Influenza Type B Ag (NEGATIVE) RSV (PCR) (NEGATIVE) SARS-CoV-2 (PCR) (NEGATIVE) <ANUJA PATEL - Last Filed: 01/31/25 20:02> - Progress Progress: improved Air Movement: good Blood Culture(s) Obtained: Yes Antibiotics given: Yes Counseled pt/family regarding: lab results, diagnosis, rad results <GEENA PEREZ - Last Filed: 01/31/25 22:39> - Progress Progress Note: 01/31/25 20:02 My medical decision making in the assignment of moderate complexity to this patient's medical issue today is based on review the patient's past medical history, reviewed the patient's medication list, reviewed patient drug allergy list, history present illness and physical findings on examination. They were I n this patient includes placement of intravenous line, infusion of normal saline solution, CBC, CMP, viral swabs, repeat chest x-ray. We will also provide the patient with hydrocodone/acetaminophen elixir. Differential diagnosis includes but is not limited to viral illness, upper respiratory infection, bacterial pneumonia, CHF I am transferring care of this patient to Dr. Ness Perez at shift change. He will follow-up on study results and make final disposition. (ANUJA PATEL) 49-year-old male presents to our ED for evaluation of a cough shortness of breath. Patient initially evaluated by Dr. Patel. Patient endorsed to Dr. Perez at approximately [address] Patel advised Dr. Perez to follow-up on pending studies and make final disposition. CTA chest ordered. CTA chest negative for PE. The pneumonia that was identified on an outpatient chest x-ray just 3 days prior was not seen on today's CTA chest. However in light of patient's new hypoxia requiring supplemental oxygen the decision was made to admit. Patient is already on prednisone and doxycycline. No additional antibiotics administered. Patient is influenza A positive. This is likely c ontributing to patient's symptomology. Case discussed with Dr. Savage hospitalist who accepts admission to observation at 10:34 PM. Plan of care discussed with patient. He agrees to admission to [facility] for further evaluation and treatment. Of note patient received hyd rocodone/acetaminophen elixir for cough. Patient's cough has significantly improved. Patient's is at the bedside. They voiced no other complaints or concerns at this time. Portions of this note were created with voice recognition technology. There may be grammatical, spelling, punctuation or sound alike errors 01/31/25 22:36 (GEENA PEREZ) Medical Desision Making - Independent Historian Additional History obtained from: Spouse <ANUJA PATEL - Last Filed: 01/31/25 20:02> - Departure Departure Disposition: Home Critical Care Time: No <ANUJA PATEL - Last Filed: 01/31/25 20:02> <GEENA PEREZ - Last Filed: 01/31/25 22:39> - Departure Clinical Impression: Cough, Shortness of breath, Hypoxia, Influenza A Condition: Stable Referrals: KANA ESCOBEDO MD [Primary Care Provider] - Follow up/PCP as directed
[2025-01-31] MEDS ORDERED: HYDROCODONE-ACETAMIN 2.5-108/5 ML SOLUTION ONE (18:25)
[2025-01-31] MEDS: HYDROCODONE-ACETAMIN 2.5-108/5 ML SOLUTION PO STA (18:27)
[2025-01-31 18:28] LABS: Absolute Neutrophil Ct (ANC) 3.05 x10^3/uL (1.78-5.38); BASOPHIL % 0.4 % (0.2-1.2); Basophil (Absolute #) 0.02 x10^3/uL (0.01-0.08); Eosinophil (Absolute #) 0 x10^3/uL (0.04-0.54); Hematocrit 45.5 % (40.1-51.0); Hemoglobin 14.9 g/dL (13.7-17.5); IMMATURE GRAN # 0.02 x10^3u/L (0.001-0.031); IMMATURE GRAN % 0.4 % (0.001-0.429); Lymphocyte (Absolute #) 1.02 x10^3/uL (1.32-3.57); Lymphocytes % 21.8 % (21.8-53.1); Mean Cell Volume 88.5 fL (79.0-92.2); Mean Corpuscular Hgb Concent. 32.7 g/dL (32.3-36.5); Mean Platelet Volume 11.3 fL (9.4-12.4); Monocyte (Absolute #) 0.56 x10^3/uL (0.30-0.82); Neutrophil % 65.4 % (34.0-67.9); Platelet Count 143 x10^3/uL (163-337); Red Blood Count 5.14 x10^6/uL (4.63-6.08); Red Cell Distribution Width 13.4 % (11.6-14.4); White Blood Count 4.7 x10^3/uL (4.23-9.07)
[2025-01-31 18:42] LABS: ALBUMIN 3.9 g/dL (3.5-5.0); ANION GAP 16.4 MEQ/L (5-15); BILIRUBIN,TOTAL 0.6 mg/dL (0.2-1.3); Calcium 8.9 mg/dL (8.4-10.2); Creatinine 1 0.91 mg/dL (0.66-1.25); Potassium 3.5 mmol/L (3.5-5.1)
[2025-01-31 18:49] LABS: INFLUENZA B NEGATIVE (NEGATIVE); RESPIRATORY SYNCTIAL VIRUS NEGATIVE (NEGATIVE); SARS-CoV-2 Xpert Express NEGATIVE (NEGATIVE)
[2025-01-31 19:02] LABS: INFLUENZA A POSITIVE (NEGATIVE)
[2025-01-31] MEDS ORDERED: Sodium Chloride 0.9% 1000 ML 1,000 ML ONE (19:38)
[2025-01-31] MEDS: Sodium Chloride 0.9% 1000 ML 1,000 ML IV STA (19:41)
[2025-02-01] MEDS ORDERED: TYLENOL 325 MG PO PRN (01:40)
[2025-02-01] MEDS ORDERED: NORCO 5/325 MG PO PRN (01:41)
--- NOTE | 2025-02-01 01:47 | PCM.HP ---
History of Present Illness - Chief Complaint Chief Complaint: cough, shortness of breath Date: 02/01/25 History of Present Illness: 49-year-old man with no significant past medical history who presents with 5 days of progressive cough, dyspnea, and fevers. Associated with myalgias, arthritis, and headache. The cough has progressed until he now has some chest pain whenever he coughs. He has had decreased p.o. intake, and has had some dry mouth and lightheadedness on standing. He initially went to urgent care where he was diagnosed with pneumonia, given a Depo-Medrol injection and prescribed doxycycline. He has been taking this medication, as well as using an old albuterol inhaler that he had, but he has had no relief, and is that she had worsening of his fever and cough. Of note, patient has no past medical history, but he did have COVID and flu this fall in September. He denies any nausea, vomiting, or diarrhea. He notes that after getting 1L IV fluids in the ED, he is feeling better. However, he still has a poor appetite and is not drinking much fluid. - Review of Systems All Other Systems: Reviewed and Negative Medications & Allergies Home Medications: Home Medication List Doxycycline Hyclate 100 mg [Vibramycin 100 MG] 100 mg PO BID 01/31/25 [History Confirmed 02/01/25] Allergies/Adverse Reactions: Allergies Allergy/AdvReac Type Severity Reaction Status Date / Time No Known Drug Allergies Allergy Verified 02/01/25 00:11 - Past Medical History Past Medical History: No Neurological History: No Pertinent History ENT History: No Pertinent History Cardiac History: No Pertinent History Respiratory History: No Pertinent History Endocrine Medical History: No Pertinent History Musculoskelatal History: No Pertinent History GI Medical History: No Pertinent History History: No Pertinent History Pyscho-Social History: No Pertinent History Male Reproductive Disorders: No Pertinent History - Past Surgical History Past Surgical History: No Neuro Surgical History: No Pertinent History Cardiac History: No Pertinent History Respiratory Surgery: No Pertinent History GI Surgical History: No Pertinent History Genitourinary Surgical Hx: No Pertinent History Musculskeletal Surgical Hx: No Pertinent History Male Surgical History: No Pertinent History Significant Family History: no pertinent family hx - Social History Smoking Status: Never smoker Exposure to second hand smoke: No Alcohol: None Drug Use: none - Social Determinants of Health Will the patient participate in the screening: Yes Do you worry about a steady place to live?: No Do you have any problems with any of the following?: No known problems In the past 12 months,have you had to go without utilities?: No Have you or anyone in your house had to go without enough: No Transportation Issues: No Has anyone in your support network made you feel unsafe?: No Does the patient want assistance with any of the above?: No - Physical Exam Vital Signs: Vital Signs - 24 hr Temp Pulse Resp BP BP Pulse Ox 02/01/25 00:14 98.9 F 72 20 126/80 96 01/31/25 23:45 62 17 111/71 97 01/31/25 23:30 62 14 108/75 01/31/25 23:15 65 21 108/75 97 01/31/25 23:00 65 13 112/76 01/31/25 22:45 66 19 109/77 97 01/31/25 22:30 69 25 H 118/82 98 01/31/25 22:15 69 19 114/83 98 01/31/25 22:00 69 16 122/81 94 L 01/31/25 21:45 104/80 01/31/25 21:30 64 20 114/75 96 01/31/25 21:15 64 23 118/80 96 01/31/25 21:00 68 21 122/86 97 01/31/25 20:57 64 16 133/78 99 01/31/25 20:15 59 L 18 116/77 100 01/31/25 20:07 94 L 01/31/25 20:00 58 L 15 99/77 97 01/31/25 19:45 62 16 113/71 98 01/31/25 19:30 70 15 106/71 97 01/31/25 19:15 69 21 111/71 97 01/31/25 19:00 61 18 107/78 96 01/31/25 18:45 63 16 109/73 96 01/31/25 18:30 61 16 107/73 96 01/31/25 18:01 62 18 96/71 95 01/31/25 17:45 67 24 111/69 95 01/31/25 17:30 67 19 98/70 95 01/31/25 17:15 63 18 104/68 94 L 01/31/25 17:00 66 14 102/72 95 01/31/25 16:53 98.4 F 70 22 119/71 94 L Physical Exam GEN: Sitting up in bed in no acute distress. HENT: Normocephalic, atraumatic. Dry mucous membranes. EYES: Normal inspection, anicteric sclera, extraocular movements intact. NECK: Supple, full range of motion CV: Regular rate and rhythm, no murmurs, no gallops. No JVD or edema. PULM: Minimal wheezing at the left base. No work of breathing. On 2 L oxygen by nasal cannula with SpO2 98%. ABD: Nondistended, nontender. MSK: No joint effusions, full range of motion SKIN: No rashes, normal color. NEURO: Face symmetric, no focal motor or sensory deficits. PSYCH: Alert, oriented x 3 Results - Labs Lab/Micro Results: Lab Results-Last 24 Hours 01/31/25 01/31/25 01/31/25 Range/Units 17:24 17:30 18:00 WBC 4.7 (4.23-9.07) x10^3/uL RBC 5.14 (4.63-6.08) x10^6/uL Hgb 14.9 (13.7-17.5) g/dL Hct 45.5 (40.1-51.0) % MCV 88.5 (79.0-92.2) fL MCH 29.0 (25.7-32.2) pg MCHC 32.7 (32.3-36.5) g/dL RDW 13.4 (11.6-14.4) % Plt Count 143 L (163-337) x10^3/uL MPV 11.3 (9.4-12.4) fL Gran % 65.4 (34.0-67.9) % Immature Gran % (Auto) 0.4 (0.001-0.429) % Nucleat RBC Rel Count 0.0 (0.00-0.2) % Eos # (Auto) 0 L (0.04-0.54) x10^3/uL Immature Gran # (Auto) 0.02 (0.001-0.031) x10^3u/L Absolute Lymphs (auto) 1.02 L (1.32-3.57) x10^3/uL Absolute Monos (auto) 0.56 (0.30-0.82) x10^3/uL Absolute Nucleated RBC 0.00 (0.00-0.012) x10^3u/L Lymphocytes % 21.8 (21.8-53.1) % Monocytes % 12.0 (5.3-12.2) % Eosinophils % 0.0 L (0.8-7.0) % Basophils % 0.4 (0.2-1.2) % Absolute Granulocytes 3.05 (1.78-5.38) x10^3/uL Basophils # 0.02 (0.01-0.08) x10^3/uL D-Dimer (0.0-0.50) mg/L Sodium (135-145) mmol/L Potassium (3.5-5.1) mmol/L Chloride (98-107) mmol/L Carbon Dioxide (22-30) mmol/L Anion Gap (5-15) MEQ/L BUN (9-20) mg/dL Creatinine (0.66-1.25) mg/dL Estimated GFR ML/MIN Glucose (74-106) mg/dL Lactic Acid 0.8 (0.4-2.0) Calcium (8.4-10.2) mg/dL Total Bilirubin (0.2-1.3) mg/dL AST (17-59) U/L ALT (0-50) U/L Alkaline Phosphatase (38-126) U/L Serum Total Protein (6.3-8.2) g/dL Albumin (3.5-5.0) g/dL Influenza Type A Ag POSITIVE A (NEGATIVE) Influenza Type B Ag NEGATIVE (NEGATIVE) RSV (PCR) NEGATIVE (NEGATIVE) SARS-CoV-2 (PCR) NEGATIVE (NEGATIVE) 01/31/25 01/31/25 Range/Units 18:32 18:32 WBC (4.23-9.07) x10^3/uL RBC (4.63-6.08) x10^6/uL Hgb (13.7-17.5) g/dL Hct (40.1-51.0) % MCV (79.0-92.2) fL MCH (25.7-32.2) pg MCHC (32.3-36.5) g/dL RDW (11.6-14.4) % Plt Count (163-337) x10^3/uL MPV (9.4-12.4) fL Gran % (34.0-67.9) % Immature Gran % (Auto) (0.001-0.429) % Nucleat RBC Rel Count (0.00-0.2) % Eos # (Auto) (0.04-0.54) x10^3/uL Immature Gran # (Auto) (0.001-0.031) x10^3u/L Absolute Lymphs (auto) (1.32-3.57) x10^3/uL Absolute Monos (auto) (0.30-0.82) x10^3/uL Absolute Nucleated RBC (0.00-0.012) x10^3u/L Lymphocytes % (21.8-53.1) % Monocytes % (5.3-12.2) % Eosinophils % (0.8-7.0) % Basophils % (0.2-1.2) % Absolute Granulocytes (1.78-5.38) x10^3/uL Basophils # (0.01-0.08) x10^3/uL D-Dimer 0.51 H (0.0-0.50) mg/L Sodium 142 (135-145) mmol/L Potassium 3.5 (3.5-5.1) mmol/L Chloride 109 H (98-107) mmol/L Carbon Dioxide 20 L (22-30) mmol/L Anion Gap 16.4 H (5-15) MEQ/L BUN 21 H (9-20) mg/dL Creatinine 0.91 (0.66-1.25) mg/dL Estimated GFR 102.0 ML/MIN Glucose 83 (74-106) mg/dL Lactic Acid (0.4-2.0) Calcium 8.9 (8.4-10.2) mg/dL Total Bilirubin 0.60 (0.2-1.3) mg/dL AST 62 H (17-59) U/L ALT 101 H (0-50) U/L Alkaline Phosphatase 70 (38-126) U/L Serum Total Protein 7.0 (6.3-8.2) g/dL Albumin 3.9 (3.5-5.0) g/dL Influenza Type A Ag (NEGATIVE) Influenza Type B Ag (NEGATIVE) RSV (PCR) (NEGATIVE) SARS-CoV-2 (PCR) (NEGATIVE) - Radiology Impressions Radiology Exams & Impressions: Radiology Procedures Category Date Time Status CHEST 1 VIEW (PORTABLE) Stat Exams 01/31/25 19:38 Taken CHEST WITH CONTRAST [CT] Stat Exams 01/31/25 20:15 Taken Chest x-ray no infiltrates, effusions, or edema. CT chest no PE, no infiltrates or effusions. (Images personally reviewed) Assessment/Plan (1) Influenza A Current Visit: Yes Status: Acute Assessment & Plan: 49-year-old man with no significant past medical history who presents with influenza A and acute hypoxic respiratory failure. ## Influenza A with systemic manifestations. Worsened after getting steroids. No evidence of pneumonia on chest x-ray. Onset of symptoms was 5 days ago, so he is just outside the typical period for oseltamivir, however as he is currently requiring hospitalization, there is still some continued benefit. Start oseltamivir 75 mg p.o. BID x 5 days PRN guaifenesin/codeine Start normal saline at 100 mL/h for relative dehydration, until he has better p.o. intake ## Acute hypoxic respiratory failure secondary to influenza, but of note, patient does not have any pneumonia on imaging. He is also on pretty minimal oxygen settings with a good SpO2. I suspect he will be able to be quickly weaned off of the oxygen, although he may have some lingering pulmonary effects from his prior COVID infection in the fall that would predispose him to hypoxia. Also, although he had no relief with albuterol inhaler at home, he has some very minimal wheezing on exam. Wean FiO2 to maintain SpO2 between 91 and 94% Start DuoNeb q.4 hours PRN CODE STATUS: Full code Diet: Regular Prophylaxis: None, low risk, encourage ambulation Dispo: Place in observation, expect discharge to home in the next 24 to 48 hours Entirety of encounter took place via live audio/video telemedicine device, with remote physician and patient in hospital, with the assistance of bedside nurse. Code(s): J10.1 - FLU DUE TO OTH IDENT INFLUENZA VIRUS W OTH RESP MANIFEST Telemedicine Encounter - Telemedicine Encounter Telemedicine Encounter: "The entirety of this encounter was performed via Telemedicine" This visit was performed using real-time audio and video connection between my location and thepatients locationwith the assistance of a surrogateat the patients location. Written or verbal consent was obtained from the patient/gua rdian to perform this visit usingsynchrhunting[facility] centertelemedicine technology. Any patient questions regarding the telemedicine interaction were answered.
[2025-02-01] MEDS: Robitussin AC Syrup Unit Dose Cup PO PRN (02:00)
[2025-02-01] MEDS: Sodium Chloride 0.9% 1000 ML 1,000 ML IV SCH (02:00)
[2025-02-01] MEDS: Tamiflu 75MG Capsule PO SCH (02:00)
[2025-02-01 05:33] LABS: Hematocrit 47.3 % (40.1-51.0); Hemoglobin 15.3 g/dL (13.7-17.5); Mean Cell Volume 90.6 fL (79.0-92.2); Mean Corpuscular Hemoglobin 29.3 pg (25.7-32.2); Mean Corpuscular Hgb Concent. 32.3 g/dL (32.3-36.5); Mean Platelet Volume 11.7 fL (9.4-12.4); Platelet Count 156 x10^3/uL (163-337); Red Blood Count 5.22 x10^6/uL (4.63-6.08); Red Cell Distribution Width 13.7 % (11.6-14.4); White Blood Count 4.1 x10^3/uL (4.23-9.07)
[2025-02-01 06:00] LABS: ANION GAP 15.8 MEQ/L (5-15); Calcium 8.5 mg/dL (8.4-10.2); Creatinine 1 0.9 mg/dL (0.66-1.25); EST GLOMERULAR FILTRATION RATE 103.4 ML/MIN; Potassium 3.8 mmol/L (3.5-5.1)
--- NOTE | 2025-02-01 08:36 | XRAY ---
Indication: Short of breath. Multiple contiguous axial images obtained through the chest using 80 cc Isovue 370 contrast and PE protocol. Comparison: None Good opacification pulmonary arteries to include the lobar and segmental branches. No pulmonary embolus. Heart not enlarged. Aorta is normal in course and caliber. A few small mediastinal and left hilar calcified nodes. No pathologic mediastinal/hilar lymphadenopathy. Small hiatal hernia. Lungs inflated with a few tiny left lower lobe calcified granulomas. No suspicious pulmonary mass/nodule, infiltrate, or effusion. Bony thorax intact with small multilevel Schmorl nodes. Limited upper abdomen demonstrates fatty liver. Impression: 1. Negative pulmonary embolus. No acute cardiopulmonary abnormalities. 2. Incidental small hiatal hernia, fatty liver, and old granulomatous disease.
--- NOTE | 2025-02-01 08:57 | XRAY ---
Indication: Cough. Comparison: January 28, 2025 Portable chest remains inflated and clear. Heart not enlarged. Bony thorax intact again with old left clavicle fracture. No new/acute findings.
[2025-02-01] MEDS: PROTONIX 40 MG IV IV SCH (14:46)
[2025-02-01] MEDS: Zofran 4 MG/2 ML VIAL IV PRN (17:26)
[2025-02-02 05:19] LABS: Absolute Neutrophil Ct (ANC) 1.71 x10^3/uL (1.78-5.38); BASOPHIL % 0.3 % (0.2-1.2); Basophil (Absolute #) 0.01 x10^3/uL (0.01-0.08); Eosinophil % 0.3 % (0.8-7.0); Eosinophil (Absolute #) 0.01 x10^3/uL (0.04-0.54); Hematocrit 44.5 % (40.1-51.0); Hemoglobin 14.6 g/dL (13.7-17.5); IMMATURE GRAN # 0.01 x10^3u/L (0.001-0.031); IMMATURE GRAN % 0.3 % (0.001-0.429); Lymphocyte (Absolute #) 1.56 x10^3/uL (1.32-3.57); Lymphocytes % 41.8 % (21.8-53.1); Mean Cell Volume 88.1 fL (79.0-92.2); Mean Corpuscular Hemoglobin 28.9 pg (25.7-32.2); Mean Corpuscular Hgb Concent. 32.8 g/dL (32.3-36.5); Mean Platelet Volume 11.2 fL (9.4-12.4); Monocyte (Absolute #) 0.43 x10^3/uL (0.30-0.82); Monocytes % 11.5 % (5.3-12.2); Neutrophil % 45.8 % (34.0-67.9); Platelet Count 147 x10^3/uL (163-337); Red Blood Count 5.05 x10^6/uL (4.63-6.08); Red Cell Distribution Width 13.2 % (11.6-14.4); White Blood Count 3.7 x10^3/uL (4.23-9.07)
[2025-02-02 05:37] LABS: ALBUMIN 3.9 g/dL (3.5-5.0); ANION GAP 12.4 MEQ/L (5-15); BILIRUBIN,TOTAL 0.8 mg/dL (0.2-1.3); Calcium 8.2 mg/dL (8.4-10.2); Creatinine 1 0.92 mg/dL (0.66-1.25); EST GLOMERULAR FILTRATION RATE 100.7 ML/MIN; Potassium 3.8 mmol/L (3.5-5.1); Total Protein 7.1 g/dL (6.3-8.2)
[2025-02-02] MEDS: DUONEB 0.5-3 MG/3 ml Neb IH PRN (07:16)
[2025-02-02 07:33] VITALS: BP 103/67; RESP 18; TEMP 98.4
[2025-02-02 07:35] VITALS: PULSE 66; O2SAT 95
--- NOTE | 2025-02-02 10:32 | PCM.DS ---
Discharge Summary Date of Admission: 01/31/25 23:50 Date of Discharge: 02/02/25 Admitting Physician: CALLUM DÍAZ MD Primary Care Provider: KANA ESCOBEDO Allergies Allergies No Known Drug Allergies Allergy (Verified 02/01/25 00:11) Hospital Summary - Hospital Course Hospital Course: 49-year-old man with no significant past medical history who presents with 5 days of progressive cough, dyspnea, and fevers. Associated with myalgias, arthritis, and headache. The cough has progressed until he now has some chest pain whenever he coughs. He has had decreased p.o. intake, and has had some dry mouth and lightheadedness on standing. He initially went to urgent care where he was diagnosed with pneumonia, given a Depo-Medrol injection and prescribed do xycycline. He has been taking this medication, as well as using an old albuterol inhaler that he had, but he has had no relief, and is that she had worsening of his fever and cough. Of note, patient has no past medical history, but he did have COVID and flu this fall in September. He denies any nausea, vomiting, or diarrhea. He notes that after getting 1L IV fluids in the ED, he is feeling better. However, he still has a poor appetite and is not drinking much fluid. Chest CT negative for PE and demonstrating no acute abnormalities. Lab findings unremarkable. Patient treated with IVF and Tamiflu. Dyspnea and weakness improved. He is now on RA. Will discharge with Tamiflu and nebulizer machine/ DuoNebs. Discharge Note New Diagnosis: FluA New Medications: Tamiflu/DuoNebs Follow Up: PCP I spent 35 minutes [id number] with the patient on the day of discharge p erforming discharge exam, discussing hospital stay and discharge instructions with patient and caregivers, preparation of discharge records, prescriptions & referral forms and addressing any questions/concerns the patient had as documented above. - Vitals & Intake/Output Vital Signs: Vital Signs Temperature 98.4 F 02/02/25 07:32 Pulse Rate 66 02/02/25 07:33 Respiratory Rate 18 02/02/25 07:33 Blood Pressure 103/67 02/02/25 07:32 O2 Sat by Pulse Oximetry 95 02/02/25 07:33 Intake & Output: Intake & Output 01/30/25 01/31/25 02/01/25 02/02/25 11:59 11:59 11:59 11:59 Intake Total 120 2753 Balance 120 2753 Weight 70.5 kg - Lab Result Diagrams: 02/02/25 05:14 02/02/25 05:14 Lab Results-Last 24 Hrs: Lab Results-Last 24 Hours 02/02/25 02/02/25 Range/Units 05:14 05:14 WBC 3.7 L (4.23-9.07) x10^3/uL RBC 5.05 (4.63-6.08) x10^6/uL Hgb 14.6 (13.7-17.5) g/dL Hct 44.5 (40.1-51.0) % MCV 88.1 (79.0-92.2) fL MCH 28.9 (25.7-32.2) pg MCHC 32.8 (32.3-36.5) g/dL RDW 13.2 (11.6-14.4) % Plt Count 147 L (163-337) x10^3/uL MPV 11.2 (9.4-12.4) fL Gran % 45.8 (34.0-67.9) % Immature Gran % (Auto) 0.3 (0.001-0.429) % Nucleat RBC Rel Count 0.0 (0.00-0.2) % Eos # (Auto) 0.01 L (0.04-0.54) x10^3/uL Immature Gran # (Auto) 0.01 (0.001-0.031) x10^3u/L Absolute Lymphs (auto) 1.56 (1.32-3.57) x10^3/uL Absolute Monos (auto) 0.43 (0.30-0.82) x10^3/uL Absolute Nucleated RBC 0.00 (0.00-0.012) x10^3u/L Lymphocytes % 41.8 (21.8-53.1) % Monocytes % 11.5 (5.3-12.2) % Eosinophils % 0.3 L (0.8-7.0) % Basophils % 0.3 (0.2-1.2) % Absolute Granulocytes 1.71 L (1.78-5.38) x10^3/uL Basophils # 0.01 (0.01-0.08) x10^3/uL Sodium 139 (135-145) mmol/L Potassium 3.8 (3.5-5.1) mmol/L Chloride 106 (98-107) mmol/L Carbon Dioxide 24 (22-30) mmol/L Anion Gap 12.4 (5-15) MEQ/L BUN 11 (9-20) mg/dL Creatinine 0.92 (0.66-1.25) mg/dL Estimated GFR 100.7 ML/MIN Glucose 77 (74-106) mg/dL Calcium 8.2 L (8.4-10.2) mg/dL Total Bilirubin 0.80 (0.2-1.3) mg/dL AST 66 H (17-59) U/L ALT 83 H (0-50) U/L Alkaline Phosphatase 69 (38-126) U/L Serum Total Protein 7.1 (6.3-8.2) g/dL Albumin 3.9 (3.5-5.0) g/dL Micro Results-Entire Visit: Microbiology 01/31/25 18:00 Blood Culture - Preliminary Blood - Radiology Exams Ordered Rad Exams-Entire Visit: Radiology Procedures Category Date Time Status CHEST 1 VIEW (PORTABLE) Stat Exams 01/31/25 19:38 Completed CHEST WITH CONTRAST [CT] Stat Exams 01/31/25 20:15 Completed - Procedures and Test Procedures and Tests throughout Hospitalization: Therapy Orders & Screens 02/01/25 02:54 Oxygen Nasal Cannula 2 lpm Comment: Diagnosis: cough, shortness of breath Respiratory Therapy Assessment DAILY Comment: Diagnosis: cough, shortness of breath 02/02/25 09:00 Qualify for Home Oxygen TODAY Comment: PLEASE WALK PATIENT WELL Diagnosis: cough, shortness of breath Discharge Exam General Appearance: no apparent distress Neurologic Exam: alert, oriented x 3, cooperative Eye Exam: PERRL Ears, Nose, Throat Exam: normal ENT inspection Neck Exam: normal inspection Respiratory Exam: diminished breath sounds Cardiovascular Exam: regular rate/rhythm, normal heart sounds Gastrointestinal/Abdomen Exam: soft, normal bowel sounds Male Genitalia Exam: deferred Rectal Exam: deferred Back Exam: normal inspection Extremity Exam: normal inspection Skin Exam: normal color Final Diagnosis/Problem List - Final Discharge Diagnosis/Problem (1) Acute respiratory failure with hypoxia Current Visit: Yes Status: Resolved Code(s): J96.01 - ACUTE RESPIRATORY FAILURE WITH HYPOXIA (2) Influenza A Current Visit: Yes Status: Acute Code(s): J10.1 - FLU DUE TO OTH IDENT INFLUENZA VIRUS W OTH RESP MANIFEST (3) Elevated LFTs Current Visit: Yes Status: Acute Code(s): R79.89 - OTHER SPECIFIED ABNORMAL FINDINGS OF BLOOD CHEMISTRY - Discharge Discharge Date: 02/02/25 Disposition: Home, Self-Care Condition: Stable Prescriptions: New Nebulizer 1 each UD #1 misc Nebulizer Accessories [Adult Aerosol Mask] 1 each UD #1 misc Albuterol/Ipratropium 3ml Neb* [DUONEB 0.5-3 MG/3 ml Neb] 3 ml IN Q6HPRN PRN 30 Days #120 amp PRN Reason: Shortness Of Breath/Wheezing Guaifenesin/Codeine 5 ml [Robitussin AC Syrup Unit Dose Cup] 10 ml PO Q4HPRN PRN 7 Days #420 ml MDD 60 ml PRN Reason: Cough Oseltamivir 75 mg [Tamiflu 75MG Capsule] 75 mg PO BID 4 Days #8 cap Discontinued Doxycycline Hyclate 100 mg [Vibramycin 100 MG] 100 mg PO BID Follow up with: KANA ESCOBEDO MD [Primary Care Provider] -
== END 2025-02-02 11:50 | disposition home or self-care (01) ==
LOC: ED 16:52 → MED SURG 23:50
PROVIDERS: ADMIT Internal Medicine; ATTEND Internal Medicine
DX: J96.01 Acute respiratory failure with hypoxia (principal); J10.1 Influenza due to other identified influenza virus with other respiratory manifestations; R79.89 Other specified abnormal findings of blood chemistry; R51.9 Headache, unspecified; Z79.899 Other long term (current) drug therapy; Z86.16 Personal history of COVID-19
CPT/HCPCS: 0241U; 36415; 71045; 71260; 80048; 80053; 83605; 85025; 85027; 85379; 87040; 93005; 93041; 93268; 94640; 94760; 99285; G0378; Q3014; J2405; A9270-GY